=== PATIENT | female | born 1955 | race Caucasian/White ===

== ENCOUNTER 2019-05-21 09:31 | Inpatient (IN) ==
[2019-05-21] MEDS ORDERED: DUONEB (A & A) INH ONE (09:49)
--- NOTE | 2019-05-21 09:57 | PROVIDER DOCUMENTATION ---
HPI-Respiratory General - General Stated Complaint: SOB/ High Blood Sugar Time Seen by Provider: 05/21/19 09:46 Source: patient Allergies/Adverse Reactions: Patient Allergies Allergy/AdvReac Type Severity Reaction Status Date / Time carisoprodol [From Soma] Allergy Mild HIVES Verified 05/21/19 11:03 Penicillins Allergy RASH Verified 05/21/19 11:03 Home Medications: Home Medication List Medication Instructions Recorded Confirmed Last Taken Type Albuterol Sulfate Inhaler 2 puff INH [id number] PRN 02/20/15 05/21/19 05/21/19 07:00 History [Ventolin Hfa] Multivitamin [Multivitamins] 1 each PO DAILY 03/13/15 05/21/19 05/20/19 07:00 History Aspirin 81 mg PO DAILY #30 chewtab 10/24/15 05/21/19 05/20/19 07:00 Rx Amiodarone [Cordarone] 100 mg PO DAILY 01/19/16 05/21/19 05/20/19 07:00 History Cholecalciferol (Vit D3) [Vitamin 5,000 unit PO DAILY 01/19/16 05/21/19 05/20/19 07:00 History D] Vitamin B Complex 1 each PO DAILY 01/19/16 05/21/19 05/20/19 07:00 History Clopidogrel [Plavix] 75 mg PO DAILY 07/26/17 05/21/19 05/21/19 07:00 History Hydralazine [Apresoline] 75 mg PO BID 07/26/17 05/21/19 05/20/19 21:00 History Insulin Aspart [Novolog Flexpen] 100 unit SQ DIRECTED 07/26/17 05/21/19 05/20/19 19:00 History Insulin Glargine [Lantus] 30 unit SUBQ QAM #0 07/30/17 05/21/19 05/20/19 07:00 Rx ATORVAstatin [Lipitor] 10 mg PO QHS 05/21/19 05/21/19 05/20/19 21:00 History Amlodipine [Norvasc] 10 mg PO DAILY 05/21/19 05/21/19 05/20/19 07:00 History Citalopram [Celexa] 40 mg PO DAILY 05/21/19 05/21/19 05/20/19 07:00 History Famotidine 40 mg PO BID 05/21/19 05/21/19 05/20/19 17:00 History Gabapentin 200 mg PO QHS 05/21/19 05/21/19 05/20/19 21:00 History Gabapentin [Neurontin] 100 mg PO QAM 05/21/19 05/21/19 05/20/19 07:00 History Levothyroxine [Synthroid] 175 microgm PO DAILY 05/21/19 05/21/19 05/20/19 07:00 History - History of Present Illness-Resp Nature of Presenting Problem: 63yof present to ER via EMS with c/o SOB. Pt is a dialysis pt and is due for dialysis today. EMS reports O2 sat in 60s on arrival states they gave breathing tx en route. Pt on NRB during exam. Quality of Pain: reports: none Onset/Duration: reports: 2 days ago Timing: reports: still present, getting worse Cough Quality/Degree: reports: no cough Current Respiratory Medication Therapy: Initiated see nurses note Associated Symptoms: reports: chest pain/soreness, short of breath, wheezing. denies: dizziness, fever/chills, sweaty Review of Systems - Adult - REVIEW OF SYSTEMS - ADULT ROS:: limited per condition Constitutional: reports: no symptoms reported. denies: chills, fever Eyes: reports: no symptoms reported Ears, Nose, Mouth & Throat: reports: no symptoms reported. denies: throat pain Cardiovascular: reports: no symptoms reported. denies: chest pain Respiratory: reports: see HPI, dyspnea on exertion, shortness of breath, wheezing. denies: cough Gastrointestinal: reports: no symptoms reported. denies: nausea, vomiting Genitourinary: reports: see HPI, other (anuric) Musculoskeletal: reports: no symptoms reported Integumentary: reports: no symptoms reported Neurological: reports: no symptoms reported. denies: dizziness/vertigo Psychiatric: reports: no symptoms reported Endocrine: reports: no symptoms reported Hematologic/Lymphatic: reports: no symptoms reported Allergic/Immunologic: reports: no symptoms reported All Other Systems: Reviewed and Negative Past History - Adult - PAST MEDICAL HISTORY-ADULT Review of Records: reports: Old Records Reviewed, Nursing Assessment Review, Medications Reviewed, Social history reviewed & non-contributory. Major Childhood Illnesses: reports: denies history Cardiovascular: reports: CAD, CHF, HTN, hyperlipidemia Respiratory: reports: denies history Gastrointestinal: reports: GERD Obstetrical/Gynecological: reports: denies history Genitourinary: reports: dialysis, ESRD, kidney disease Musculoskeletal: reports: other (Restless Leg Syndrome) Neurological: reports: denies history Endocrine/Immune: reports: Diabetes, thyroid disorder Other Conditions: reports: denies history - PRIOR SURGERIES/PROCEDURES Surgical/Procedure History: reports: cardiac stent - IMMUNIZATION STATUS Childhood Immunizations: See Nurse Assessment Flu Vaccine: See Nurse Assessment - FAMILY HISTORY Family History: reviewed, not pertinent Physical Exam-General - PHYSICAL EXAM-ADULT Initial Vital Signs Reviewed: Yes - CONSTITUTIONAL General Appearance: alert, moderate distress - HEAD, EARS, NOSE, MOUTH & THROAT HENMT: moist mucous membranes. negative: angioedema - NECK Neck: full range of motion, supple, normal inspection. negative: lymphadenopathy, trachial deviation - RESPIRATORY Respiratory: chest non-tender, respiratory distress, accessory muscle use, rhonchi, wheezing, retractions, increased rate - CARDIOVASCULAR Cardiovascular: regular rate, rhythm, other (1+ edema to BLE) - GASTROINTESTINAL (ABDOMEN) Abdominal Exam: normal bowel sounds, non tender, soft - LYMPHATIC Lymphatic: no adenopathy - MUSCULOSKELETAL Back Exam: normal inspection Extremity: normal range of motion, normal capillary refill. negative: erythema, pulse deficit - SKIN Integumentary: normal color, warm/dry. negative: diaphoresis - NEUROLOGIC Neurologic: grossly normal - PSYCHIATRIC Psych/Mental Status: oriented x 3 Progress - PLAN OF CARE/RESULTS Progress/Plan/Lab Results: Vital Signs - 8 hr 05/21/19 09:30 05/21/19 10:20 Temperature 98.6 F Pulse Rate 100 H Respiratory Rate 24 Blood Pressure 122/83 O2 Sat by Pulse Oximetry 62 L 97 05/21/19 10:17 Influenza Screen - Final Nasopharyngeal Laboratory Results - last 24 hr 05/21/19 05/21/19 05/21/19 09:35 09:49 10:07 WBC 10.90 H RBC 3.49 L Hgb 10.7 L Hct 35.3 L MCV 101.1 H MCH 30.7 MCHC 30.3 L RDW Std Deviation 16.7 H Plt Count 217 MPV 10.6 H Immature Gran % (Auto) 0.3 Neut % (Auto) 82.0 H Lymph % (Auto) 12.0 L Page % (Auto) 4.8 Eos % (Auto) 0.3 Baso % (Auto) 0.6 Immature Gran # (Auto) 0.03 Neut # (Auto) 8.95 H Lymph # (Auto) 1.31 Page # (Auto) 0.52 Eos # (Auto) 0.03 Baso # (Auto) 0.06 PT INR PTT (Actin FS) Specimen Type ARTERIAL Sample Site L RADIAL pH 7.17 L* pCO2 57 H* pO2 96 HCO3 18.5 L Base Excess -8.0 L Oxyhemoglobin 88.2 L* ABG O2 Sat (Calculated) 14.2 L ABG O2 Saturation 98.0 ABG Carboxyhemoglobin 9.00 H* ABG Methemoglobin 1.0 Mateo Test YES A-a O2 Difference 403.0 Total Hemoglobin 11.3 L Lactate 1.00 Blood Gas Modality NRB FiO2 % 80.0 Sodium Potassium Chloride Carbon Dioxide Anion Gap BUN Creatinine Estimated GFR/1.73 m2 BUN/Creatinine Ratio Glucose POC Glucose 500 H D Estimat Average Glucose Hemoglobin A1c Calculated Osmolality Calcium Phosphorus Magnesium Total Bilirubin AST ALT Alkaline Phosphatase Creatine Kinase Troponin T Total Protein Albumin Globulin Albumin/Globulin Ratio Triglycerides Cholesterol LDL Cholesterol Direct VLDL Cholesterol, Calc HDL Cholesterol Coronary Risk Interp Amylase Lipase Plasma Lactate Acetone Level 05/21/19 05/21/19 05/21/19 10:07 10:07 10:07 WBC RBC Hgb Hct MCV MCH MCHC RDW Std Deviation Plt Count MPV Immature Gran % (Auto) Neut % (Auto) Lymph % (Auto) Page % (Auto) Eos % (Auto) Baso % (Auto) Immature Gran # (Auto) Neut # (Auto) Lymph # (Auto) Page # (Auto) Eos # (Auto) Baso # (Auto) PT 13.8 INR 1.04 PTT (Actin FS) 32.6 Specimen Type Sample Site pH pCO2 pO2 HCO3 Base Excess Oxyhemoglobin ABG O2 Sat (Calculated) ABG O2 Saturation ABG Carboxyhemoglobin ABG Methemoglobin Mateo Test A-a O2 Difference Total Hemoglobin Lactate Blood Gas Modality FiO2 % Sodium 128 L Potassium 6.5 H* Chloride 89 L Carbon Dioxide 21 L Anion Gap 18 BUN 49 H Creatinine 7.4 H Estimated GFR/1.73 m2 6 BUN/Creatinine Ratio 7 Glucose 857 H* POC Glucose Estimat Average Glucose Hemoglobin A1c Calculated Osmolality 313 Calcium 8.9 Phosphorus Magnesium 2.4 Total Bilirubin 0.43 AST 26 ALT 14 Alkaline Phosphatase 245 H Creatine Kinase 117 Troponin T Total Protein 7.8 Albumin 4.3 Globulin 3.5 Albumin/Globulin Ratio 1.2 Triglycerides Cholesterol LDL Cholesterol Direct VLDL Cholesterol, Calc HDL Cholesterol Coronary Risk Interp Amylase Lipase Plasma Lactate 1.1 Acetone Level NEGATIVE 05/21/19 05/21/19 05/21/19 10:07 10:07 10:07 WBC RBC Hgb Hct MCV MCH MCHC RDW Std Deviation Plt Count MPV Immature Gran % (Auto) Neut % (Auto) Lymph % (Auto) Page % (Auto) Eos % (Auto) Baso % (Auto) Immature Gran # (Auto) Neut # (Auto) Lymph # (Auto) Page # (Auto) Eos # (Auto) Baso # (Auto) PT INR PTT (Actin FS) Specimen Type Sample Site pH pCO2 pO2 HCO3 Base Excess Oxyhemoglobin ABG O2 Sat (Calculated) ABG O2 Saturation ABG Carboxyhemoglobin ABG Methemoglobin Mateo Test A-a O2 Difference Total Hemoglobin Lactate Blood Gas Modality FiO2 % Sodium Potassium Chloride Carbon Dioxide Anion Gap BUN Creatinine Estimated GFR/1.73 m2 BUN/Creatinine Ratio Glucose POC Glucose Estimat Average Glucose 192 Hemoglobin A1c 8.3 H Calculated Osmolality Calcium Phosphorus 9.8 H Magnesium Total Bilirubin AST ALT Alkaline Phosphatase Creatine Kinase Troponin T 0.146 H Total Protein Albumin Globulin Albumin/Globulin Ratio Triglycerides Cholesterol LDL Cholesterol Direct VLDL Cholesterol, Calc HDL Cholesterol Coronary Risk Interp Amylase 46 Lipase 77 H Plasma Lactate Acetone Level 05/21/19 10:07 WBC RBC Hgb Hct MCV MCH MCHC RDW Std Deviation Plt Count MPV Immature Gran % (Auto) Neut % (Auto) Lymph % (Auto) Page % (Auto) Eos % (Auto) Baso % (Auto) Immature Gran # (Auto) Neut # (Auto) Lymph # (Auto) Page # (Auto) Eos # (Auto) Baso # (Auto) PT INR PTT (Actin FS) Specimen Type Sample Site pH pCO2 pO2 HCO3 Base Excess Oxyhemoglobin ABG O2 Sat (Calculated) ABG O2 Saturation ABG Carboxyhemoglobin ABG Methemoglobin Mateo Test A-a O2 Difference Total Hemoglobin Lactate Blood Gas Modality FiO2 % Sodium Potassium Chloride Carbon Dioxide Anion Gap BUN Creatinine Estimated GFR/1.73 m2 BUN/Creatinine Ratio Glucose POC Glucose Estimat Average Glucose Hemoglobin A1c Calculated Osmolality Calcium Phosphorus Magnesium Total Bilirubin AST ALT Alkaline Phosphatase Creatine Kinase Troponin T Total Protein Albumin Globulin Albumin/Globulin Ratio Triglycerides 110 Cholesterol 153 LDL Cholesterol Direct 69 VLDL Cholesterol, Calc 22 HDL Cholesterol 76 H Coronary Risk Interp 2.00 Amylase Lipase Plasma Lactate Acetone Level Orders Category Date Time Status [facility] Routine [id number] 05/21/19 12:11 Active Cardiac Monitoring DIRECTED Care 05/21/19 09:48 Active Daily Weights 0500 Care 05/21/19 12:16 Active Dialysate Bath: DIRECTED Care 05/21/19 10:36 Completed Dialysate Flow: DIRECTED Care 05/21/19 10:36 Completed Dialysis Blood Flow: DIRECTED Care 05/21/19 10:36 Completed Dialysis Machine Settings: DIRECTED Care 05/21/19 10:36 Completed Dialysis Treatment Time: DIRECTED Care 05/21/19 10:36 Completed Dialysis Treatment Weight ROUTINE Care 05/21/19 10:36 Completed Dialysis UF Removal Amount: DIRECTED Care 05/21/19 10:36 Completed Dialyzer Type: DIRECTED Care 05/21/19 10:36 Completed FSBS/Accucheck Result Q1H Care 05/21/19 12:16 Active IV Insertion ORDERED Care 05/21/19 09:48 Completed If symptomatic Hypoglycemia As Ordered Care 05/21/19 12:16 Active Intake and Output-Strict ORDERED Care 05/21/19 12:16 Active NRSG - Obtain Dialysis Consent NOW Care 05/21/19 10:36 Completed Notify physician if: ORDERED Care 05/21/19 12:16 Active Nursing- MD Consult Request ROUTINE Care 05/21/19 12:11 Active Vital Signs Order Q1H Care 05/21/19 12:11 Active Physician/Provider Consults Routine Cons 05/21/19 12:11 Ordered Physician/Provider Consults Routine Cons 05/21/19 12:11 Ordered NPO Except MEDICATIONS Diet 05/21/19 12:19 Active Renal Diet Diet 05/21/19 12:13 Completed CHEST-1 VIEW [RAD] Stat Exams 05/21/19 09:48 Completed A1C HGB W EST AVG GLUCOSE [CHEM] Stat Lab 05/21/19 10:07 Completed ABG [RESP] Q4H Lab 05/21/19 12:16 Ordered ABG [RESP] Q4H Lab 05/21/19 16:16 Ordered ABG [RESP] Q4H Lab 05/21/19 20:16 Ordered ABG [RESP] Q4H Lab 05/22/19 00:16 Ordered ABG [RESP] Q4H Lab 05/22/19 04:16 Ordered ABG [RESP] Q4H Lab 05/22/19 08:16 Ordered ABG [RESP] Routine Lab 05/21/19 09:49 Completed ACETONE SERUM [CHEM] Stat Lab 05/21/19 10:07 Completed AMYLASE [CHEM] Stat Lab 05/21/19 10:07 Completed BASIC METABOLIC PANEL [CHEM] Q4H Lab 05/21/19 12:30 Uncollected BASIC METABOLIC PANEL [CHEM] Q4H Lab 05/21/19 16:30 Uncollected BASIC METABOLIC PANEL [CHEM] Q4H Lab 05/21/19 20:30 Uncollected BLOOD CULTURE [BLDCUL] Stat Lab 05/21/19 10:45 Results CBC WITH DIFF [HEME] Stat Lab 05/21/19 10:07 Completed CK PROFILE [SP CHEM] Stat Lab 05/21/19 10:07 Completed COMPREHENSIVE METABOLIC PANEL [CHEM] Stat Lab 05/21/19 10:07 Completed Flu Swab [INFLUENZA SCREEN A/B] Stat Lab 05/21/19 10:17 Completed LACTATE, PLASMA [CHEM] Lab 05/21/19 10:07 Completed LACTATE, PLASMA [CHEM] Lab 05/21/19 13:00 Uncollected LACTATE, PLASMA [CHEM] Lab 05/21/19 16:00 Uncollected LIPASE [CHEM] Stat Lab 05/21/19 10:07 Completed LIPID PROFILE W/DIR LDL [LIPIDS] Stat Lab 05/21/19 10:07 Completed MAGNESIUM [CHEM] Q4 Lab 05/21/19 12:30 Uncollected MAGNESIUM [CHEM] Q4 Lab 05/21/19 16:30 Uncollected MAGNESIUM [CHEM] Q4 Lab 05/21/19 20:30 Uncollected MAGNESIUM [CHEM] Stat Lab 05/21/19 10:07 Completed PHOSPHORUS [CHEM] Q4 Lab 05/21/19 12:30 Uncollected PHOSPHORUS [CHEM] Q4 Lab 05/21/19 16:30 Uncollected PHOSPHORUS [CHEM] Q4 Lab 05/21/19 20:30 Uncollected PHOSPHORUS [CHEM] Stat Lab 05/21/19 10:07 Completed PROTIME WITH INR [COAG] Stat Lab 05/21/19 10:07 Completed PTT [COAG] Stat Lab 05/21/19 10:07 Completed TROPONIN T Stat Lab 05/21/19 10:07 Completed URINALYSIS W/POSS RFLX CULT [URINALYSIS] Stat Lab 05/21/19 12:18 Uncollected URINE DRUG SCREEN Stat Lab 05/21/19 12:17 Uncollected 0.9% Sodium Chloride Inj [Ns] 1,000 ml Med 05/21/19 10:00 Discontinued IV 999 mls/hr 0.9% Sodium Chloride Inj [Ns] 100 ml Med 05/21/19 12:30 Active Insulin Human Regular [Humulin R] 100 unit IV Per Protocol mls/hr 0.9% Sodium Chloride Inj [Ns] 2,000 ml Med 05/21/19 10:36 Discontinued MISC As Directed mls/hr ATORVAstatin [Lipitor] Med 05/21/19 21:00 Active 10 mg PO QHS Acetaminophen [Tylenol] Med 05/21/19 12:11 Active 650 mg PO Q6H PRN PRN Albuterol 2.5MG/Ipratrop 0.5MG [Duoneb (A & A)] Med 05/21/19 15:30 Active 3 ml INH RTQ4H Albuterol 2.5MG/Ipratrop 0.5MG [Duoneb (A & A)] Med 05/21/19 09:49 Discontinued 9 ml INH NOW ONE Amiodarone [Cordarone] Med 05/21/19 12:15 Active 100 mg PO DAILY Amlodipine [Norvasc] Med 05/21/19 12:15 Active 10 mg PO DAILY Aspirin Med 05/21/19 12:15 Active 81 mg PO DAILY Budesonide [Pulmicort] Med 05/21/19 19:30 Active 0.5 mg INH RTBID CAPTOpril [Capoten] Med 05/21/19 10:03 Discontinued 25 mg PO NOW ONE CAPTOpril [Capoten] Med 05/21/19 13:00 Discontinued 6.25 mg PO Q8HR CefTRIAXONE [Rocephin] 1 gm Med 05/21/19 10:15 Discontinued 0.9% Sodium Chloride Inj [Ns] 50 ml IV NOW Cholecalciferol (Vit D3) [Vitamin D] Med 05/22/19 09:00 Active 5,000 unit PO DAILY Citalopram [Celexa] Med 05/22/19 09:00 Active 40 mg PO DAILY Clopidogrel [Plavix] Med 05/22/19 09:00 Active 75 mg PO DAILY Dextrose 50% Syringe [D50w Syringe] Med 05/21/19 12:16 Active See Protocol IV DIRECTED PRN PRN Famotidine [Pepcid] Med 05/21/19 21:00 Active 40 mg PO BID Furosemide [Lasix] Med 05/21/19 10:00 Discontinued 80 mg IV NOW ONE Gabapentin [Neurontin] Med 05/22/19 09:00 Active 100 mg PO QAM Gabapentin [Neurontin] Med 05/21/19 21:00 Active 200 mg PO QHS Heparin Med 05/21/19 10:36 Discontinued 1,000 unit IV BOLUS PRN Heparin Med 05/21/19 12:15 Active 5,000 unit SUBQ Q12H Hydralazine [Apresoline] Med 05/21/19 21:00 Active 75 mg PO BID Insulin Glargine [Lantus] Med 05/22/19 09:00 Discontinued 30 unit SUBQ QAM Insulin Human Regular [Humulin R] Med 05/21/19 12:16 Discontinued 7.8 unit IV ONCE ONE Insulin Human Regular [Humulin R] Med 05/21/19 16:00 Discontinued See Protocol SUBQ 0700,1100,1600,2100 Levothyroxine [Synthroid] Med 05/22/19 09:00 Active 175 microgm PO DAILY Mag Sulf/Vitamin B Comp W-C/Zn [Vicon-C] Med 05/22/19 09:00 Active 1 each PO DAILY Morphine Med 05/21/19 10:03 Discontinued 4 mg IV NOW ONE Multivit,Fe,Ca,FA & Min [Thera M Plus] Med 05/22/19 09:00 Active 1 each PO DAILY Nitroglycerin Med 05/21/19 10:00 Discontinued 1 inch TOP NOW ONE Ondansetron [Zofran] Med 05/21/19 10:03 Discontinued 4 mg IV NOW ONE Ondansetron [Zofran] Med 05/21/19 12:11 Active 4 mg IV Q4H PRN PRN Aerosol Treatments Routine Oth 05/21/19 09:49 Active Aerosol Treatments Routine Oth 05/21/19 12:11 Active Aerosol Treatments Stat Oth 05/21/19 09:49 Active BIPAP Stat Oth 05/21/19 10:04 Active Oxygen Device Stat Oth 05/21/19 09:48 Active EKG [EKG] Stat Ther 05/21/19 09:50 Draft Transfer/Admit Order [TRANSFER] Routine Transfer 05/21/19 12:03 Ordered Result Diagrams: 05/21/19 10:07 05/21/19 10:07 - REASSESSMENT Reassessment #1 Time Reassessed: 10:03 (discussed pt with Dr Gilbert. Dr Gilbert assessed pt suggests adding captropril 25mg SL, morphine, nitro, and lasix.) Reassessment #2 Time Reassessed: 10:45 (pt improving with bipap, will be doing to dialysis.) Status: improving - EKG 1 Time of EKG reading by physician:: 09:46 EKG Read and Signed by:: Clemente Gilbert EKG Interpretation (*Must complete 3 of following elements*): Abnormal Rate: 89 Rhythm: NSR, 1st degree AV block, prolonged QT - XRAY 1 XRAY Study: Chest Impression: See EMR Report (FINDINGS: There is significant cardiomegaly. There are severe diffuse bilateral mixed infiltrates that are predominantly interstitial. There are probably trace pleural effusions. IMPRESSION: Cardiomegaly, pulmonary edema, trace pleural effusions. Electronically signed by Doni Rodriguez 05/21/2019 10:10 AM) - CONSULTS/PCP/HOSPITALIST Notification #1 *Consult/PCP/Hospitalist*: Dr Gilbert spoke with Dr Ashby - states he is going to dialysis her first Time Discussed: 10:11 (admit to hospitalist) Consult Disposition: Admit #2 Consult: Emerald RAHMAN hospitalist Time Discussed: 12:04 Consult Disposition: Admit Departure - Departure Date of Disposition Decision: 05/21/19 Time of Disposition Decision: 10:15 DIAGNOSIS: ESRD (end stage renal disease), Hyperkalemia, Hyperglycemia Respiratory failure Qualifiers: Chronicity: acute Respiratory failure complication: hypoxia and hypercapnia Qualified Code(s): J96.01 - Acute respiratory failure with hypoxia Pulmonary edema Qualifiers: Chronicity: acute Qualified Code(s): J81.0 - Acute pulmonary edema Disposition: ADMITTED INPATIENT 09 Certified Medical Emergency: Emergent Condition: Fair - Critical Care Note This patient required my direct & personal management of CC.: Yes Total Time (mins): 45 Critical Care Statement: This patient required my direct personal management to treat or rule out processes, the absence of which, could potentiallly result in sudden, clinically significant life or limb threatening deterioration. Attestation - Physician/ AXEL Attestation Patient care was provided by Advanced Practice Provider:: Yes Advanced Practice Provider:: Brittany Montilla Advanced Practice Provider documentation review:: The Mid-level provider documentation, treatment plan and medical decision making was reviewed by the physician who agrees with all treatment and medical decision making by the MLP. The physician spent face to face time with patient:: Yes Advanced Practice Provider documentation review:: Supervising physician onsite and consulted in the evaluation and care of this patient. The physician did have a face to face encounter with the patient.
[2019-05-21] MEDS ORDERED: NITROGLYCERIN TOP ONE (10:00)
[2019-05-21] MEDS ORDERED: NS 1,000 ML IV ONE (10:00)
[2019-05-21] MEDS ORDERED: LASIX IV ONE (10:00)
[2019-05-21 10:03] LABS: ALLEN TEST YES; BLOOD TYPE ARTERIAL; HCO3-(ACT) 18.5 mmoll (20.0-26.0); O2(CT) 14.2 mL/dL (15.0-23.0); PO2(98.6) 96 mmHg (60-100); SAMPLE BLOOD; THB 11.3 g/dL (11.5-17.4)
[2019-05-21] MEDS ORDERED: CAPOTEN PO ONE (10:03)
[2019-05-21] MEDS ORDERED: MORPHINE IV ONE (10:03)
[2019-05-21] MEDS ORDERED: ZOFRAN IV ONE (10:03)
[2019-05-21 10:05] LABS: PCO2(98.6) 57 mmHg (35-45); pH(98.6) 7.17 (7.35-7.45)
[2019-05-21 10:06] LABS: O2HB 88.2 % (95.0-99.0)
[2019-05-21 10:07] LABS: MODALITY NRB
--- NOTE | 2019-05-21 10:13 | Diag Imaging Result Doc PS360 ---
CHEST-1 VIEW - 05/21/2019 INDICATION: sob COMPARISON: 05/02/2018 FINDINGS: There is significant cardiomegaly. There are severe diffuse bilateral mixed infiltrates that are predominantly interstitial. There are probably trace pleural effusions. IMPRESSION: Cardiomegaly, pulmonary edema, trace pleural effusions. Electronically signed by Doni Rodriguez 05/21/2019 10:10 AM
[2019-05-21] MEDS ORDERED: ROCEPHIN 1 GM in NS 50 ML IV ONE (10:15)
--- NOTE | 2019-05-21 10:25 | EKG Report ---
Test Performed on : 05/21/2019 09:46:01 AM Test Reason : sob Blood Pressure : / mmHG Vent. Rate : 089 BPM Atrial Rate : 416 BPM P-R Int : 000 ms QRS Dur : 112 ms QT Int : 426 ms P-R-T Axes : 000 -42 069 degrees QTc Int : 518 ms Atrial flutter. Left axis deviation Anterior infarct (cited on or before 26-JUL-2017) Prolonged QT Abnormal ECG When compared with ECG of 26-JUL-2017 20:59, Previous ECG has undetermined rhythm, needs review ST no longer depressed in Anterior leads T wave inversion no longer evident in Lateral leads QT has lengthened Unconfirmed Result
[2019-05-21 10:32] LABS: BASO# 0.06 X1000 (0.0-0.2); BASO% 0.6 % (0.0-0.8); EOS# 0.03 X1000 (0.0-0.7); EOS% 0.3 % (0.0-10.0); HEMATOCRIT 35.3 % (37.0-47.0); HEMOGLOBIN 10.7 g/dL (12.0-16.0); IMM GRAN# 0.03 X1000 (0.0-0.04); IMM GRAN% 0.3 % (0.0-0.5); LYMPH# 1.31 X1000 (1.2-3.4); MCH 30.7 PG (27-31); MCHC 30.3 g/dL (33-37); MCV 101.1 FL (81-99); MONO# 0.52 X1000 (0.11-0.59); MONO% 4.8 % (1.7-9.3); MPV 10.6 FL (7.4-10.4); NEUT# 8.95 X1000 (1.4-6.5); PLT 217 X1000 (130-400); RBC 3.49 XMIL (4.2-5.4); RDW 16.7 % (11.5-14.5)
[2019-05-21] MEDS ORDERED: NS 2,000 ML MISC PRN (10:36)
[2019-05-21 10:53] LABS: INR 1.04; PROTIME 13.8 Seconds (11.0-16.0)
[2019-05-21 10:54] LABS: PTT 32.6 Seconds (22.3-41.8)
[2019-05-21] MEDS: HEPARIN IV PRN (11:45)
[2019-05-21 11:52] LABS: AGAP 18; ALB/GLOB RATIO 1.2; ALBUMIN 4.3 g/dL (3.5-5.0); ALKALINE PHOSPHATASE 245 U/L (32-104); BUN 49 mg/dL (8-22); CALCIUM 8.9 mg/dL (8.8-10.2); CHLORIDE 89 mmol/L (98-107); CK PROFILE 117 U/L (24-173); COSMO 313; CREATININE 7.4 mg/dL (0.5-0.9); ESTIMATED GFR 6; GOT 26 U/L (10-30); GPT 14 U/L (10-36); MAGNESIUM 2.4 mg/dL (1.5-2.7); SODIUM 128 mmol/L (136-145); TCO2 21 mmol/L (25-35); TOTAL BILIRUBIN 0.43 mg/dL (0.20-1.00); TOTAL PROTEIN 7.8 g/dL (6.3-8.3)
[2019-05-21 11:55] LABS: GLUCOSE 857 mg/dL (70-104); POTASSIUM 6.5 mmol/L (3.5-5.1)
[2019-05-21 11:56] LABS: ACETONE SERUM NEGATIVE (NEGATIVE)
[2019-05-21] MEDS ORDERED: TYLENOL PO PRN (12:11)
[2019-05-21] MEDS ORDERED: HUMULIN R IV ONE (12:16)
[2019-05-21] MEDS ORDERED: D50W SYRINGE IV PRN (12:16)
[2019-05-21] MEDS ORDERED: HUMULIN R 100 UNIT in NS 100 ML IV SCH (12:30)
[2019-05-21 12:41] LABS: PHOSPHORUS 9.8 mg/dL (2.7-4.5)
[2019-05-21 12:44] LABS: HEMOGLOBIN A1C 8.3 % (4.8-6.0)
[2019-05-21] MEDS ORDERED: CAPOTEN PO SCH (13:00)
[2019-05-21 15:51] LABS: ALLEN TEST YES; BE 2.5 mmoll (-3.0-3.0); BLOOD TYPE ARTERIAL; HCO3-(ACT) 26.7 mmoll (20.0-26.0); METHB 1.2 % (0.0-1.5); O2(CT) 16.7 mL/dL (15.0-23.0); PCO2(98.6) 48 mmHg (35-45); PO2(98.6) 67 mmHg (60-100); SAMPLE BLOOD; SAO2 94.8 % (95.0-100.0); THB 13.2 g/dL (11.5-17.4); pH(98.6) 7.38 (7.35-7.45)
[2019-05-21 15:52] LABS: MODALITY BI PAP; O2HB 89.8 % (95.0-99.0)
[2019-05-21] MEDS ORDERED: HUMULIN R SUBQ SCH (16:00)
[2019-05-21] MEDS ORDERED: AZACTAM 1 GM in NS 50 ML IV ONE (16:15)
[2019-05-21] MEDS: ASPIRIN PO SCH (16:17)
[2019-05-21] MEDS: HEPARIN SUBQ SCH (16:18)
[2019-05-21] MEDS: CORDARONE PO SCH ×2 (16:18→18:34)
[2019-05-21] MEDS: NORVASC PO SCH ×2 (16:18→18:34)
[2019-05-21] MEDS: ZYVOX 600 MG/D5W 600 MG/300 ML IVPB IV SCH (16:29)
[2019-05-21] MEDS: DUONEB (A & A) INH SCH ×3 (16:47→23:38)
[2019-05-21] MEDS: PULMICORT INH SCH (19:35)
--- NOTE | 2019-05-21 20:02 | HISTORY AND PHYSICAL ---
PRIMARY CARE PROVIDER: Edinson Maxwell MD CHIEF COMPLAINT: Shortness of breath. HISTORY OF PRESENT ILLNESS: Ms. Myers is a 63-year-old female with a medical history of end-stage renal disease and receives dialysis on Tuesday, Tuesday, Tuesday. Was due for dialysis today. Apparently, she started having excessive shortness of breath last night, requested her brother bring her to the emergency department where she was found to have acute respiratory failure requiring BiPAP. She was also significantly hyperglycemic in the 800s, which she claims that she was in the 40s yesterday so she missed some of her insulin. Currently she went for emergent hemodialysis for fluid volume overload secondary to fluid volume. We will consult Pulmonary for respiratory failure, Dr. Ashby for fluid volume overload and end-stage renal disease. She will be monitored in the ICU, started on an insulin drip for significant hyperglycemia. PAST MEDICAL HISTORY: 1. CAD with history of PTCA and stents x3. 2. Diabetes mellitus, type 2, uncontrolled. 3. Diabetic neuropathy. 4. End-stage renal disease with hemodialysis Tuesday, Tuesday, Tuesday, followed by Dr. Ashby. 5. GERD. 6. Systemic hypertension. 7. Hyperlipidemia. 8. Hypothyroidism. 9. Restless legs syndrome. 10. Anemia, chronic. 11. Protein-calorie malnutrition with hypoalbuminemia. 12. Depression. 13. Obstructive sleep apnea. 14. Tobacco abuse. 15. Recurrent falls. 16. Cervical lumbar spinal stenosis. 17. History of decubitus ulcers on her toes. 18. Morbid obesity. 19. Chronic lower extremity edema. 20. Congestive heart failure. SURGICAL HISTORY: 1. AV grafting. 2. PTCA with 3 stents. SOCIAL HISTORY: A 1- to 7-pgla-asc-day cigarettes for at least 50 years. She is on disability. Lives with her brother. Uses a walker for ambulation. Denies alcohol or illicit drug use. FAMILY HISTORY: Positive for diabetes, hypertension, heart disease. ALLERGIES: Carisoprodol and penicillin. HOME MEDICATIONS: 1. Gabapentin 200 mg p.o. nightly. 2. Atorvastatin 10 mg p.o. nightly. 3. Apresoline 75 mg p.o. twice daily. 4. Celexa 40 mg p.o. daily. 5. Amiodarone 200 mg p.o. daily. 6. Pepcid 40 mg p.o. twice daily. 7. Multivitamin 1 tablet p.o. daily. 8. Neurontin 100 mg p.o. daily. 9. Norvasc 10 mg p.o. daily. 10. Insulin sliding scale. 11. Plavix 75 mg p.o. daily. 12. Synthroid 175 mcg p.o. daily. 13. Albuterol 4 times a day p.r.n. 14. Vitamin B complex 1 tablet p.o. daily. 15. Vitamin D 5000 units p.o. daily. 16. Aspirin 81 mg p.o. daily. 17. Lantus 30 units subcutaneous daily. REVIEW OF SYSTEMS: A 14 point review of systems is complete, and all are negative except for those mentioned in above HPI. She denies having any productive cough. Denies fever or chest pain. Denies any urinary tract symptoms. PHYSICAL EXAMINATION: VITAL SIGNS: Temperature 98.6 degrees, heart rate 100, respiratory rate 24, blood pressure 122/83, O2 saturation 62% on room air and 97% on BiPAP. 5 feet 3 inches tall, 172 pounds, BMI is 30.5. GENERAL: Ms. Jolene Myers is a 63-year-old female. She is in no acute distress. She is able answer questions appropriately with the BiPAP on. HEENT: Atraumatic, normocephalic. Pupils are equal and reactive. Extraocular movements intact. Mucous membranes are dry. NECK: Trachea midline. CARDIOVASCULAR: S1, S2. Tachycardic rate and rhythm. No rubs, gallops, or murmurs. She has got 4+ lower extremity edema. 2+ dorsalis and radial pulses. Positive for JVD. Negative for carotid bruits. PULMONARY: Clear to auscultation. Bilateral breath sounds decreased in the bases. No accessory muscle use. Mild work of breathing. Tolerating BiPAP. GASTROINTESTINAL: Soft, round, nondistended. Positive bowel sounds x4. EXTREMITIES: Decreased range of motion. Moves all extremities equally, about a 4/5 strength. NEUROLOGIC: Oriented x3. Follows commands. Decreased sensory in the lower extremities. SKIN: Warm, dry, intact. LABORATORY DATA: White blood cells 10,000, hemoglobin 10, hematocrit 35, platelet count 217,000. INR 1.04, PTT is 32.6. ABGs on a non-rebreather: PH 7.17, pCO2 of 57, PO2 of 96, bicarbonate 18, base excess -8, O2 saturation 88%, carboxyhemoglobin 9, lactate 1. Sodium 128, potassium 6.5, BUN 49, creatinine 7.4,, glucose 857. Hemoglobin A1c is 8.3 which is higher than it has been, she normally ranges between 6.3 and 6.4. Phosphorus 9.8, magnesium is 2.4. Bilirubin 0.43, AST 26, ALT 14. CK 117, troponin. 0.146. Albumin 4.3. Triglycerides 110, total cholesterol 153. Amylase 44, lipase 77. Serum lactate 1.1. Acetone negative. IMAGING: Chest x-ray: Cardiomegaly, pulmonary edema, trace pleural effusions. DIAGNOSTIC STUDIES: EKG is stating atrial flutter, but this looks like a sinus rhythm. It does not look like a 2:1 flutter at all. Rate is 89. QTc is elevated at 518. ASSESSMENT AND PLAN: 1. Fluid volume overload with acute hypoxemic respiratory failure, requiring BiPAP and emergent hemodialysis. 2. End-stage renal disease, scheduled for Tuesday, Tuesday, Tuesday. She is emergently going for dialysis today with elevated potassium levels, BUN and creatinine, and fluid volume overload. Dr. Ashby has beenM consulted. Dr. Lin with Pulmonary consulted. 3. Metabolic acidosis. Likely from elevated blood glucose levels and kidney failure. We will recheck ABGs every 4 hours while she is on the insulin drip. 4. Uncontrolled diabetes mellitus type 2, nonketotic. Blood glucose level is 857 on presentation. She will be started on an insulin drip. According to her, her blood glucose levels were in the 40s yesterday, but we will go ahead and put her on the DKA protocol, insulin drip. Will just not do electrolyte replacement or volume replacement secondary to her fluid volume overload. 5. Depression. Continue Celexa. 6. History of coronary artery disease with stents. Denies any chest pain. 7. Decompensated systolic congestive heart failure. This is acute on chronic and dialysis is the treatment for her fluid volume overload at this time. 8. Hypothyroidism. Continue Synthroid. 9. Gastroesophageal reflux disease. Continue Pepcid. 10. Diabetic neuropathy. Continue Neurontin. 11. Hypertension. Continue Norvasc and Apresoline. 12. EKG reports atrial flutter. It looks like sinus rhythm, but she is on amiodarone so we will continue that. 13. Deep venous thrombosis prophylaxis. Heparin subcutaneous every 12 hours. 14. Tobacco abuse. Cessation discussed. Dictated by LACEY Khan for Terri Donovan MD cc: LACEY Khan MD I performed a face to face encounter on the patient. I reviewed all labs and imaging on the patient. I agree with the H&P as dictated. is a 63 year old female with a history of ESRD on hemodialysis, hypertension and DM type 2 who presented to the ER with Acute respiratory failure, volume overload and hyperkalemia. On exam, the patient was in moderate respiratory distress. Her breath sounds were coarse. The patient was immediately placed on BIPAP and was consulted. The patient was then taken for emergent dialysis. The patient will be admitted and transferred to the ICU after her dialysis treatment is complete. DIGNA
[2019-05-21 20:06] LABS: ALLEN TEST YES; BE 1.9 mmoll (-3.0-3.0); BLOOD TYPE ARTERIAL; HCO3-(ACT) 26.3 mmoll (20.0-26.0); METHB 0.9 % (0.0-1.5); O2(CT) 12.9 mL/dL (15.0-23.0); O2HB 90.3 % (95.0-99.0); PCO2(98.6) 48 mmHg (35-45); PO2(98.6) 62 mmHg (60-100); SAMPLE BLOOD; SAO2 94.2 % (95.0-100.0); THB 10.1 g/dL (11.5-17.4); pH(98.6) 7.37 (7.35-7.45)
[2019-05-21 20:08] LABS: MODALITY BI PAP
[2019-05-21] MEDS: SOLU-MEDROL IV SCH (20:16)
[2019-05-21] MEDS: LIPITOR PO SCH (20:17)
[2019-05-21] MEDS: APRESOLINE PO SCH (20:17)
[2019-05-21] MEDS: NEURONTIN PO SCH (20:17)
[2019-05-21] MEDS ORDERED: PEPCID PO SCH (21:00)
--- NOTE | 2019-05-21 21:33 | NEPHROLOGY CONSULTATION ---
DATE: 05/21/2019 REASON FOR CONSULTATION: Assistance with management. CONSULTING PHYSICIAN: Dr. Clemente Gilbert in the emergency room who contacted me directly. HISTORY OF PRESENT ILLNESS: Ms. Myers is a 63-year-old white female who is known to us from the outpatient dialysis arena. She has CKD 5D as well as diabetes, hypertension, peripheral neuropathy, hypothyroidism etc. She has been losing weight. Not eating well. She states that she had worsening shortness of breath overnight that aroused her from sleep. Some cough and green sputum. No pain with her cough and no chest pain generally. No chills or fevers. Because of these worsening symptoms, she had herself transported to the emergency room. O2 saturation was in the 60s on arrival following a breathing treatment and being treated with nonrebreather mask. She was transitioned to BiPAP and we were called for emergency dialysis management. No chills or fevers, sweats or night sweats. PAST MEDICAL HISTORY: As above. HOME MEDICATIONS: Include albuterol, multivitamin, aspirin, amiodarone, vitamin D, B complex, clopidogrel, hydralazine, insulin, atorvastatin, amlodipine, citalopram, famotidine, gabapentin, levothyroxine. SOCIAL, FAMILY AND REVIEW OF SYSTEMS: Otherwise noncontributory. PHYSICAL EXAMINATION: Vital Signs: Blood pressure 122/83, heart rate 100, respirations 24, afebrile. General: She is a chronically ill, elderly woman in no distress but using BiPAP. Skin is pale and dry with few ecchymoses. Conjunctivae are pink. Pupils are equal. Oropharynx is clear. Tongue is glistening. Neck: Supple. Neck veins are 6 cm. Heart: PMI nondisplaced. Regular rate and rhythm without gallops or murmurs. Lungs: Have equal breath sounds, shallow. No crackles. Abdomen: Obese, soft, nontender. Bowel sounds present. Extremities: 1+ edema. No clubbing or cyanosis. IMPRESSION: Respiratory failure. We will challenge her dry weight today with dialysis. She also is hyperkalemic and we will address this with dialysis as well. Marked hyperglycemia that will be managed by the primary team. Reassess for dialysis needs in the morning. cc: Sonny Ashby MD
[2019-05-21 23:31] LABS: CALCIUM 9.3 mg/dL (8.8-10.2); MAGNESIUM 1.8 mg/dL (1.5-2.7); PHOSPHORUS 5.4 mg/dL (2.7-4.5); POTASSIUM 3.8 mmol/L (3.5-5.1)
[2019-05-22] MEDS: HEPARIN SUBQ SCH ×2 (01:00→12:42)
[2019-05-22 01:39] LABS: CREATININE 4.2 mg/dL (0.5-0.9); POTASSIUM 4.4 mmol/L (3.5-5.1)
[2019-05-22 01:52] LABS: MAGNESIUM 1.9 mg/dL (1.5-2.7); PHOSPHORUS 5.4 mg/dL (2.7-4.5)
[2019-05-22] MEDS: ZYVOX 600 MG/D5W 600 MG/300 ML IVPB IV SCH ×2 (03:23→16:34)
[2019-05-22] MEDS: SOLU-MEDROL IV SCH ×3 (03:24→20:45)
[2019-05-22] MEDS: DUONEB (A & A) INH SCH ×6 (04:03→22:41)
[2019-05-22 04:32] LABS: ALLEN TEST YES; BE 3.6 mmoll (-3.0-3.0); BLOOD TYPE ARTERIAL; HCO3-(ACT) 27.7 mmoll (20.0-26.0); METHB 1.2 % (0.0-1.5); O2(CT) 13.3 mL/dL (15.0-23.0); PCO2(98.6) 44 mmHg (35-45); PO2(98.6) 148 mmHg (60-100); SAMPLE BLOOD; SAO2 99.2 % (95.0-100.0); THB 9.6 g/dL (11.5-17.4); pH(98.6) 7.42 (7.35-7.45)
[2019-05-22 04:33] LABS: MODALITY BI PAP
[2019-05-22 04:58] LABS: BASO# 0.02 X1000 (0.0-0.2); BASO% 0.2 % (0.0-0.8); HEMATOCRIT 31.2 % (37.0-47.0); HEMOGLOBIN 9.8 g/dL (12.0-16.0); IMM GRAN# 0.02 X1000 (0.0-0.04); IMM GRAN% 0.2 % (0.0-0.5); LYMPH# 0.59 X1000 (1.2-3.4); LYMPH% 5.8 % (20.5-51.1); MCH 30.8 PG (27-31); MCHC 31.4 g/dL (33-37); MCV 98.1 FL (81-99); MONO# 0.16 X1000 (0.11-0.59); MONO% 1.6 % (1.7-9.3); MPV 10.7 FL (7.4-10.4); NEUT# 9.41 X1000 (1.4-6.5); NEUT% 92.2 % (42.2-75.2); PLT 206 X1000 (130-400); RBC 3.18 XMIL (4.2-5.4); RDW 16.7 % (11.5-14.5)
[2019-05-22 05:25] LABS: CALCIUM 8.9 mg/dL (8.8-10.2); CREATININE 4.6 mg/dL (0.5-0.9); MAGNESIUM 1.9 mg/dL (1.5-2.7); PHOSPHORUS 6.2 mg/dL (2.7-4.5)
[2019-05-22 05:28] LABS: INR 1.15; PROTIME 14.9 Seconds (11.0-16.0)
[2019-05-22 05:29] LABS: PTT 31.5 Seconds (22.3-41.8)
[2019-05-22 05:30] LABS: ALB/GLOB RATIO 0.9; ALBUMIN 3.3 g/dL (3.5-5.0); DIRECT BILIRUBIN 0.2 mg/dL (0.00-0.20); MAGNESIUM 1.9 mg/dL (1.5-2.7); TOTAL BILIRUBIN 0.44 mg/dL (0.20-1.00); TOTAL PROTEIN 7.1 g/dL (6.3-8.3)
[2019-05-22] MEDS: PRILOSEC PO SCH (06:10)
--- NOTE | 2019-05-22 06:57 | Diag Imaging Result Doc PS360 ---
CHEST-PORTABLE - 05/22/2019 INDICATION: resp failure COMPARISON: 05/21/2019 FINDINGS: There has been improvement in the dense bilateral pulmonary edema. Stable cardiomegaly. No large pleural effusion. IMPRESSION: Significant improvement in the pulmonary edema. Electronically signed by Dnoi Rodriguez 05/22/2019 6:55 AM
[2019-05-22] MEDS ORDERED: NS 2,000 ML MISC PRN (07:22)
[2019-05-22] MEDS ORDERED: HEPARIN IV PRN (07:22)
[2019-05-22] MEDS ORDERED: TIGHT: 0.2 ML/HR FOR DIALYSIS MISC PRN (07:22)
--- NOTE | 2019-05-22 08:00 | PULMONOLOGY CONSULTATION ---
DATE: 05/21/2019 REQUESTING CLINICIAN: Dr. Terri Donovan. REASON FOR CONSULTATION: Respiratory failure. HISTORY OF PRESENT ILLNESS: Ms. Myers is a 63-year-old white female with COPD, ongoing tobacco use, end-stage renal disease on hemodialysis, who has had increased cough, increased shortness of breath, with increased sputum production for the last several days. The patient presented to the emergency room this morning with an oxygen saturation in the 60s. The patient was scheduled for dialysis today. Initial arterial blood gas revealed a pH of 7.17, pCO2 of 57, pO2 of 96 on a non- rebreather and a carboxyhemoglobin level of 9.0. Chest x-ray revealed cardiomegaly with pulmonary edema and trace bilateral effusions. The patient underwent hemodialysis with 3 L volume removed. She remains on BiPAP, but reports some clinical improvement. PAST MEDICAL HISTORY/PROBLEM LIST: 1. Diabetes mellitus, which appears to be poorly controlled. 2. End-stage renal disease on hemodialysis. 3. Chronic obstructive pulmonary disease with ongoing tobacco use/nicotine addiction. 4. Three-vessel coronary artery disease with prior stent placement in the LAD, the circumflex, the right coronary artery. 5. Chronic kidney disease due to hypertensive nephropathy on chronic hemodialysis. SOCIAL HISTORY: Ongoing tobacco use. No alcohol use listed. FAMILY HISTORY: Positive for diabetes and hypertension. REVIEW OF SYSTEMS: As noted in the HPI, but is slightly limited with BiPAP in place. PHYSICAL EXAMINATION: General: Reveals a 63-year-old white female on BiPAP, who appears much older than her stated age of 63. BP 169/80, heart rate 67, respiratory rate 23, oxygen saturation 95% on BiPAP. HEENT: Pupils are equal and reactive. Oropharynx is clear. Neck: Supple. Chest: Reveals diffuse wheezing bilaterally with scattered rhonchi. Cardiac Exam: S1, S2. Abdomen: Soft. Extremities: Without edema. IMPRESSION: A 63-year-old with: 1. Chronic obstructive pulmonary disease exacerbation. 2. Acute hypoxemic and acute hypercapnic respiratory failure. 3. Ongoing tobacco use. 4. Carbon monoxide poisoning due to excessive tobacco use. 5. End-stage renal disease on hemodialysis. RECOMMENDATIONS: 1. Continue BiPAP through the evening. 2. Continue current antibiotic regimen. 3. Initiate steroids. 4. Continue bronchodilators. 5. Ongoing counseling about the importance of smoking cessation. 6. Prognosis is guarded. cc: Vasquez Lin MD
[2019-05-22] MEDS: PULMICORT INH SCH ×2 (08:01→20:18)
--- NOTE | 2019-05-22 08:33 | EKG Report ---
Test Performed on : 05/22/2019 07:57:09 AM Test Reason : chest pain Blood Pressure : / mmHG Vent. Rate : 063 BPM Atrial Rate : 063 BPM P-R Int : 180 ms QRS Dur : 100 ms QT Int : 474 ms P-R-T Axes : 079 -42 -39 degrees QTc Int : 485 ms Sinus rhythm. with premature atrial complexes. in a pattern of bigeminy. Left axis deviation T wave abnormality, consider anterolateral ischemia Prolonged QT Abnormal ECG When compared with ECG of 21-MAY-2019 09:46, (Unconfirmed) Sinus rhythm. has replaced Atrial flutter. Nonspecific T wave abnormality now evident in Inferior leads T wave inversion now evident in Lateral leads Confirmed by [employer], Jonathan [place] ([id number]) on 05/23/2019 7:44:22 AM
[2019-05-22] MEDS: PLAVIX PO SCH (08:53)
[2019-05-22] MEDS: VICON-C PO SCH (08:53)
[2019-05-22] MEDS: VITAMIN D PO SCH (08:53)
[2019-05-22] MEDS: NEURONTIN PO SCH ×2 (08:53→20:45)
[2019-05-22] MEDS: THERA M PLUS PO SCH (08:53)
[2019-05-22] MEDS: ASPIRIN PO SCH (08:53)
[2019-05-22] MEDS: NORVASC PO SCH (08:54)
[2019-05-22] MEDS: CORDARONE PO SCH (08:54)
[2019-05-22] MEDS: SYNTHROID PO SCH (08:54)
[2019-05-22] MEDS: APRESOLINE PO SCH ×2 (08:55→20:45)
[2019-05-22] MEDS ORDERED: CELEXA PO SCH (09:00)
[2019-05-22] MEDS ORDERED: INSULIN GLARGINE 30 UNIT SUBQ SCH (09:00)
[2019-05-22 09:44] LABS: MAGNESIUM 1.9 mg/dL (1.5-2.7); PHOSPHORUS 6.4 mg/dL (2.7-4.5)
[2019-05-22 09:47] LABS: CALCIUM 9.3 mg/dL (8.8-10.2); CREATININE 4.8 mg/dL (0.5-0.9); POTASSIUM 5.1 mmol/L (3.5-5.1)
[2019-05-22] MEDS ORDERED: D50W SYRINGE IV ONE (09:47)
[2019-05-22] MEDS: LANTUS INSULIN SUBQ SCH (10:10)
[2019-05-22] MEDS: HUMALOG SUBQ SCH ×3 (11:50→20:47)
--- NOTE | 2019-05-22 12:06 | NEPHROLOGY PROGRESS NOTE ---
DATE: 05/22/2019 SUBJECTIVE: She states she is much better today. She is now on a closed face mask 100%. Recently transitioned off BiPAP. OBJECTIVE: Vital Signs: Blood pressure 156/90, heart rate 62, respirations 16, afebrile. Generally: No acute distress. Skin: Warm and dry. Conjunctivae are pink. Neck: Neck veins are not appreciated. Heart: Regular with S4. Lungs: Equal with scattered wheezes. Abdomen: Soft, nontender. Bowel sounds present. Extremities: No edema, clubbing or cyanosis. IMPRESSION: Pulmonary edema. Significant improvement but still abnormal on chest x-ray. We will plan for repeat dialysis treatment today. Lower her dry weight. Electrolytes/acid base/anemia/blood pressure on target. cc: Sonny Ashby MD
[2019-05-22 13:08] LABS: CALCIUM 9.3 mg/dL (8.8-10.2); POTASSIUM 5.1 mmol/L (3.5-5.1)
[2019-05-22 13:31] LABS: PHOSPHORUS 6.6 mg/dL (2.7-4.5)
[2019-05-22 13:42] LABS: CREATININE 5.2 mg/dL (0.5-0.9)
[2019-05-22 14:07] LABS: HEPATITIS PROFILE ACUTE SEE COMMENTS
--- NOTE | 2019-05-22 15:53 | PROGRESS NOTE ---
DATE: 05/22/2019 INTERVAL HISTORY: Patient's respiratory status markedly improved with dialysis last night. Still some dyspnea and some wheezing but much improved from previous. Remains afebrile. No acute events overnight. No new complaints. REVIEW OF SYSTEMS: Twelve point review of systems negative except as per interval history. LABORATORY: WBC 10.2, hemoglobin 9.8, hematocrit 31.2, platelets 216,000. ABG, pH 7.42, pCO2 42, PO2 148 on 50% BiPAP. Sodium 136, potassium 5.1, BUN 32, creatinine 5.2, glucose 136 to 162, phosphorus 6.6, alkaline phosphatase 163. Lactate 1.2. Otitis panel negative. IMAGING: Chest x-ray with significant improvement in pulmonary edema. VITALS: T-max 99.8, pulse 67, respirations 20, blood pressure 136/50, O2 saturation 97% on nonrebreather. PHYSICAL EXAMINATION: General: No acute distress. Vitals: As above. HEENT: Normocephalic, atraumatic. On non-rebreather. Neck: No cervical adenopathy. Cardiovascular: Regular rate and rhythm. No murmurs noted. Pulmonary: Diffuse wheezing and rhonchi but actually pretty good air entry. No accessory muscle use or increased work of breathing. Abdomen: Soft, nontender, nondistended. Bowel sounds positive. Extremities: Peripheral pulses intact. No clubbing or cyanosis. Neurologic: Cranial nerves grossly intact. No focal deficits identified. Psychiatric: Normal mood and affect. Awake, alert, oriented x3. Skin: No new rashes or lesions identified. ASSESSMENT AND PLAN: 1. Acute hypoxic and hypercapnic respiratory failure, volume overload. Patient with significant volume overload, pulmonary edema on admission, likely related to her end-stage renal disease. Dialyzed last night with marked improvement in her respiratory status. Also having chronic obstructive pulmonary disease exacerbation which it is likely contributing. Nephrology planning on dialyzing again today, which may further help her respiratory status. Continue nebulizers and steroids for the chronic obstructive pulmonary disease exacerbation. Currently on antibiotics including linezolid, but no clear sign of infection thus far. We will continue for now, but if no infection is identified, will likely discontinue antibiotics within the next 24 to 48 hours. 2. End-stage renal disease. Patient dialyzes Tuesday, Tuesday, Tuesday. Dialyzed yesterday and dialyzing again today as above. 3. Diabetes mellitus significantly uncontrolled on admission. Initially placed on drip. Glucoses have been good overnight. We will go ahead and transition her to subcutaneous Lantus and sliding scale insulin and adjust as needed. 4. Coronary artery disease. Continue home aspirin and statin. 5. Hypothyroidism. Continue Synthroid. 6. Gastroesophageal reflux disease. Continue Pepcid. 7. Diabetic neuropathy. Continue Neurontin. 8. Hypertension, reasonable control on current therapy with Norvasc, hydralazine. 9. Chronic obstructive pulmonary disease exacerbation contributing to respiratory issues as above. Still some wheezing, although moving air pretty well today. Continue nebulizers and steroids and monitor. 10. Tobacco abuse. Recommended cessation. 11. Unclear history of possible congestive heart failure. Patient reportedly congestive heart failure by history, but previous echocardiograms in our system do not really show significant heart dysfunction. Last one was over 3 years ago, so we will go ahead and repeat that to clarify whether she may have an aspect of acute on chronic heart failure.
[2019-05-22] MEDS: HEPARIN IV PRN (16:10)
[2019-05-22] MEDS: ZOFRAN IV PRN (20:30)
[2019-05-22] MEDS: LIPITOR PO SCH (20:46)
--- NOTE | 2019-05-22 21:55 | PULMONOLOGY PROGRESS NOTE ---
DATE: 05/22/2019 SUBJECTIVE: The patient is awake and alert. She has been taken off the BiPAP and is on 50%. She reports she feels significantly better today. OBJECTIVE: Vital Signs: Maximum temperature in the last 24 hours is 99.8 degrees, blood pressure 143/59, heart rate 63, respiratory rate 19, oxygen saturation 96% on Venturi mask. HEENT: Pupils are equal and reactive. Oropharynx appears clear. Neck: Supple. Chest: Reveals faint wheezing with prolonged expiratory phase. Cardiac exam: S1, S2. Abdomen: Soft. Extremities: Reveal trace edema. LABORATORIES: Chest x-ray reveals cardiomegaly and pulmonary edema which has had a significant improvement compared to yesterday. Arterial blood gas reveals pH 7.42, pCO2 of 44, PO2 of 148. Sodium 136, potassium 5.1, chloride 94, bicarbonate 25, BUN 32, creatinine 5.2, glucose 162. IMPRESSION: A 63-year-old with: 1. Acute hypoxemic and acute hypercapnic respiratory failure. 2. Chronic obstructive pulmonary disease exacerbation. 3. Pulmonary edema and fluid overload. 4. Carbon monoxide poisoning. PLAN: 1. Cycle BiPAP at bedtime and p.r.n. 2. Continue current antibiotic and steroid regimen. 3. Continue bronchodilators. 4. Encouraged smoking cessation. 5. Anticipate transfer to the floor tomorrow if she continues to improve. cc: Vasquez Lin MD
[2019-05-23] MEDS: HEPARIN SUBQ SCH ×2 (00:20→16:10)
[2019-05-23] MEDS: DUONEB (A & A) INH SCH ×6 (03:51→22:30)
[2019-05-23] MEDS: ZYVOX 600 MG/D5W 600 MG/300 ML IVPB IV SCH ×2 (04:35→16:11)
[2019-05-23] MEDS: SOLU-MEDROL IV SCH ×2 (04:35→16:11)
[2019-05-23 05:25] LABS: HEMATOCRIT 31.4 % (37.0-47.0); HEMOGLOBIN 9.6 g/dL (12.0-16.0); IMM GRAN# 0.02 X1000 (0.0-0.04); IMM GRAN% 0.2 % (0.0-0.5); LYMPH# 0.41 X1000 (1.2-3.4); MCHC 30.6 g/dL (33-37); MCV 101.3 FL (81-99); MONO# 0.24 X1000 (0.11-0.59); MONO% 2.3 % (1.7-9.3); MPV 10.6 FL (7.4-10.4); NEUT# 9.69 X1000 (1.4-6.5); NEUT% 93.5 % (42.2-75.2); PLT 211 X1000 (130-400); RDW 16.6 % (11.5-14.5); WBC 10.36 X1000 (4.8-10.8)
[2019-05-23] MEDS: HUMALOG SUBQ SCH ×4 (06:03→21:55)
[2019-05-23] MEDS: PRILOSEC PO SCH (06:03)
[2019-05-23 06:07] LABS: SEGS 98 % (42-75)
[2019-05-23] MEDS ORDERED: TIGHT: 0.2 ML/HR FOR DIALYSIS MISC PRN (06:26)
[2019-05-23] MEDS ORDERED: HEPARIN IV PRN (06:26)
[2019-05-23] MEDS ORDERED: NS 2,000 ML MISC PRN (06:26)
[2019-05-23] MEDS: PULMICORT INH SCH ×2 (07:38→19:30)
[2019-05-23] MEDS: CORDARONE PO SCH (08:02)
[2019-05-23] MEDS: APRESOLINE PO SCH ×2 (08:07→20:07)
[2019-05-23] MEDS: ASPIRIN PO SCH (08:08)
[2019-05-23] MEDS: LANTUS INSULIN SUBQ SCH ×2 (08:08→12:24)
[2019-05-23] MEDS: NEURONTIN PO SCH ×2 (08:09→20:07)
[2019-05-23] MEDS: VICON-C PO SCH (08:10)
[2019-05-23] MEDS: PLAVIX PO SCH (08:10)
[2019-05-23] MEDS: THERA M PLUS PO SCH (08:10)
[2019-05-23] MEDS: VITAMIN D PO SCH (08:10)
[2019-05-23] MEDS: SYNTHROID PO SCH (08:11)
[2019-05-23] MEDS: NORVASC PO SCH (08:16)
--- NOTE | 2019-05-23 09:02 | ECHO REPORT ---
ORDER DATE: 05/22/2019 INDICATION: Volume overload. Pulmonary edema. FINDINGS: 1. The right atrium appears normal in size at 2.7 cm. 2. Mild tricuspid regurgitation. RV systolic pressure unable to be accurately estimated. 3. Normal RV size and systolic function. 4. No significant pulmonic insufficiency. 5. Severe left atrial enlargement with a volume index of 65. 6. There is heavy mitral annular calcification all along with restriction in motion of both mitral leaflets, but primarily the posterior leaflet. There is flow acceleration across the mitral valve suggesting mitral stenosis. The peak gradient across the valve is 28 with a mean of 9.6. The valve area is 1.4 cm2; this would suggest moderate bordering on severe mitral stenosis. Mild mitral regurgitation. 7. Normal LV size, end-diastolic dimension of 4.4 cm. Mild left ventricular hypertrophy with a posterior and interventricular septal wall thickness of 1.2 cm each. Normal LV systolic function with an estimated EF of 60% to 65%. 8. Aortic valve opens well. It is trileaflet. There is no evidence of stenosis or insufficiency. The valve is somewhat poorly visualized. 9. The aorta appears normal in visualized segments. 10. No pericardial effusion is identified. cc: Efrem Davis MD
--- NOTE | 2019-05-23 13:44 | PROGRESS NOTE ---
DATE: 05/23/2019 INTERVAL HISTORY: Patient's respiratory status continues to improve after dialysis yesterday and with continued nebs and steroids. Still some faint wheezing but much improved from previous. No acute events overnight. No new complaints. REVIEW OF SYSTEMS: Twelve point review of systems negative except as per interval history. LABS: WBC 10.3, hemoglobin 9.6, hematocrit 31.4, platelets 211,000. Glucose 107 to 331. VITALS: T-max 99.8 degrees, pulse 72, respirations 16, blood pressure 146/65, O2 saturation 98% on 3 L by nasal cannula. PHYSICAL EXAMINATION: General: No acute distress. Vitals: As above. HEENT: Normocephalic, atraumatic. On nasal cannula, no cervical adenopathy. Cardiovascular: Regular rate and rhythm. No murmurs noted. Pulmonary: Faint, diffuse wheezing, improved from previous. Good air entry. Abdomen: Soft, nontender, nondistended. Bowel sounds positive. Extremities: Peripheral pulses intact. No clubbing or cyanosis. Neurologic: Cranial nerves grossly intact. No focal deficits. Psychiatric: Normal mood and affect. Awake, alert, oriented x3. Skin: No new rashes or lesions seen. ASSESSMENT AND PLAN: 1. Acute hypoxic and hypercapnic respiratory failure, volume overload. The patient with significant volume overload and pulmonary edema on admission. This is likely related to end- stage renal disease and has improved markedly with dialysis x2. Dialyzing again today to get her back on her regular schedule. She also had some wheezing, so likely an aspect of COPD exacerbation as well, which is improving with steroids and nebulizers. On empiric antibiotics, currently, but no sign of infection noted. If no infection is found, we will likely discontinue antibiotics tomorrow. 2. COPD exacerbation, likely contributing to respiratory issues as above. Still some slight wheezing but much improved from previous. Continue steroids and nebs but if she continues to improve, then may be able to discharge home on oral medications tomorrow. 3. End-stage renal disease. Patient dialyzes Tuesday, Tuesday, Tuesday. Has dialyzed last 2 days. We will dialyze again today. 4. Diabetes mellitus, seeming fairly uncontrolled on admission. Initially placed on drip converted to subcutaneous insulin yesterday with some worsening of her control. We will increase Lantus slightly and continue to monitor. 5. Coronary artery disease. Continue home aspirin and statin. 6. Hypothyroidism. Continue Synthroid. 7. Gastroesophageal reflux disease. Continue Pepcid. 8. Diabetic neuropathy. Continue Neurontin. 9. Hypertension. Some occasional elevations, but overall acceptable control on current Norvasc and hydralazine. 10. Tobacco abuse. Cessation has been discussed. 11. The patient has reported history of heart failure, but EF here is normal. Appears to have some mitral stenosis but no clear evidence of heart failure on echo here. Suspect volume overload due to end-stage renal disease status rather than heart failure. 12. Disposition: The patient doing well. Will transfer to floor today, getting dialysis again today. Continue nebulizers and steroids. If she continues to improve, then may be able to transition to p.o. medications and discharge home tomorrow.
--- NOTE | 2019-05-23 19:19 | NEPHROLOGY PROGRESS NOTE ---
DATE: 05/23/2019 SUBJECTIVE: She is awake and alert. She is coughing some. No sputum production. OBJECTIVE: Vital Signs: Blood pressure 181/70, heart rate 62, respirations 15, afebrile. General: No acute distress. Skin: Warm and dry. Neck: Neck veins are not distended. Heart: Regular. Lungs: Equal with a few scattered wheezes. Abdomen: Soft, nontender. Bowel sounds present. Extremities: No edema, clubbing, or cyanosis. IMPRESSION: Pulmonary edema, progressively improving. She will dialyze again today and continue to aggressively lower her dry weight as her blood pressure allows. Electrolytes/acid base/anemia all acceptable. No changes. cc: Sonny Ashby MD
[2019-05-23] MEDS: LIPITOR PO SCH (20:06)
--- NOTE | 2019-05-24 00:07 | PULMONOLOGY PROGRESS NOTE ---
DATE: 05/23/2019 SUBJECTIVE: The patient is awake, alert, and conversant. She feels significantly better this morning. OBJECTIVE: Vital Signs: The patient has been afebrile for the last 24 hours. Blood pressure 146/65, heart rate 71, respiratory rate 18, oxygen saturation 98% on 3 L per nasal cannula. HEENT: Pupils are equal and reactive. Oropharynx appears clear. Neck: Supple. Chest: Reveals prolonged expiratory phase with scattered wheezing. Cardiac: S1, S2. Abdomen: Soft. Extremities: Without edema. LABORATORIES: White blood count 10.36, hemoglobin 9.6, platelet count 211,000. IMPRESSION: A 63-year-old with 1. Acute hypoxemic and acute hypercapnic respiratory failure. 2. Chronic obstructive pulmonary disease exacerbation. 3. Pulmonary edema and fluid overload. 4. Carbon monoxide poisoning due to excess tobacco use. RECOMMENDATIONS: 1. Anticipate transfer to the floor today. She is having ongoing improvement. 2. Continue antibiotics and steroids, consider oral steroids tomorrow. 3. Continue bronchodilators. 4. Continue to reinforce the importance of smoking cessation. cc: Vasquez Lin MD
[2019-05-24] MEDS: SOLU-MEDROL IV SCH ×2 (01:17→09:10)
[2019-05-24] MEDS: DUONEB (A & A) INH SCH ×6 (03:03→22:45)
[2019-05-24] MEDS: ZOFRAN IV PRN (03:18)
[2019-05-24] MEDS: ZYVOX 600 MG/D5W 600 MG/300 ML IVPB IV SCH ×2 (04:40→15:38)
[2019-05-24] MEDS: HEPARIN SUBQ SCH ×2 (04:40→15:38)
[2019-05-24 05:32] LABS: HEMATOCRIT 32.8 % (37.0-47.0); IMM GRAN# 0.03 X1000 (0.0-0.04); IMM GRAN% 0.3 % (0.0-0.5); LYMPH# 0.37 X1000 (1.2-3.4); LYMPH% 3.4 % (20.5-51.1); MCH 30.8 PG (27-31); MCHC 30.5 g/dL (33-37); MCV 100.9 FL (81-99); MONO% 2.7 % (1.7-9.3); MPV 10.5 FL (7.4-10.4); NEUT# 10.29 X1000 (1.4-6.5); NEUT% 93.6 % (42.2-75.2); PLT 231 X1000 (130-400); RBC 3.25 XMIL (4.2-5.4); RDW 16.3 % (11.5-14.5); WBC 10.99 X1000 (4.8-10.8)
[2019-05-24] MEDS: HUMALOG SUBQ SCH ×4 (06:21→20:39)
[2019-05-24] MEDS: PRILOSEC PO SCH (06:21)
[2019-05-24] MEDS: PULMICORT INH SCH ×2 (07:40→19:02)
[2019-05-24] MEDS: VITAMIN D PO SCH (09:09)
[2019-05-24] MEDS: ASPIRIN PO SCH (09:09)
[2019-05-24] MEDS: THERA M PLUS PO SCH (09:09)
[2019-05-24] MEDS: CORDARONE PO SCH (09:09)
[2019-05-24] MEDS: VICON-C PO SCH (09:09)
[2019-05-24] MEDS: NEURONTIN PO SCH ×2 (09:09→20:37)
[2019-05-24] MEDS: SYNTHROID PO SCH (09:09)
[2019-05-24] MEDS: PLAVIX PO SCH (09:09)
[2019-05-24] MEDS: NORVASC PO SCH (09:09)
[2019-05-24] MEDS: APRESOLINE PO SCH ×2 (09:10→20:37)
[2019-05-24] MEDS: LANTUS INSULIN SUBQ SCH (09:13)
[2019-05-24 12:00] LABS: CALCIUM 8.9 mg/dL (8.8-10.2); CREATININE 3.6 mg/dL (0.5-0.9); POTASSIUM 4.5 mmol/L (3.5-5.1)
--- NOTE | 2019-05-24 12:45 | NEPHROLOGY PROGRESS NOTE ---
DATE: 05/24/2019 SUBJECTIVE: She is on her routine CPAP. Shortness of breath resolved. No nausea, vomiting, or other complaints. OBJECTIVE: Vital Signs: Blood pressure 137/46, heart rate 65, respirations 14, afebrile. General: Chronically ill, but no acute distress. Skin: Warm and dry. HEENT: Conjunctivae are pink. Neck: Neck veins are not distended. Heart: Regular. No gallops. Lungs: Equal. No crackles. Abdomen: Soft, nontender. Bowel sounds present. Extremities: No edema, clubbing, or cyanosis. IMPRESSION: Chronic kidney disease 5D. She has dialyzed 3 days consecutively. No dialysis today. No new labs. Volume status and blood pressure are in target. Okay for discharge from my perspective. cc: Sonny Ashby MD
--- NOTE | 2019-05-24 17:08 | PROGRESS NOTE ---
DATE: 05/24/2019 INTERVAL HISTORY: Patient is symptomatically markedly improved. Respiratory status approximately baseline. Considered discharge but when the patient was weaned off of O2, she had profound drop in her oxygen down to the low 80s. Oxygen was put back on. No new complaints. No other acute events. REVIEW OF SYSTEMS: Twelve point review of systems negative except as per interval history. LABS: WBC 10.9, hemoglobin 10.0, hematocrit 32.8, platelets 231,000. Sodium 134, potassium 4.5, BUN 26, creatinine 3.6, glucose 131 to 354. VITAL SIGNS: T-max 98.7 degrees, pulse 68, respirations 15, blood pressure 136/36, O2 saturation 98% on 3 L, approximately 80 on room air. PHYSICAL EXAMINATION: General: No acute distress. Vital signs: As above. HEENT: Normocephalic, atraumatic. Moist mucous membranes. No cervical adenopathy. Cardiovascular: Regular rate and rhythm. No murmurs noted. Pulmonary: Essentially no wheezing at this point. Good air entry. No rales or rhonchi. Abdomen: Soft, nontender, nondistended. Bowel sounds positive. Extremities: Peripheral pulses intact. No clubbing or cyanosis. Neurologic: Cranial nerves grossly intact. No focal deficits. Psychiatric: Normal mood and affect. Awake, alert, oriented x3. Skin: No new rashes or lesions identified. ASSESSMENT AND PLAN: 1. Acute hypoxic and hypercapnic respiratory failure, volume overload. Patient with significant volume overload, likely related to end-stage renal disease status. Markedly improved with dialysis x3. Symptomatically almost entirely resolved. No further wheezing but still with significant hypoxia when taken off of oxygen. Continue nebulizers and steroids 1 more day. Will reassess oxygenation tomorrow. If she still desats significantly on room air, then may have to pursue further evaluation. 2. Chronic obstructive pulmonary disease exacerbation. Clinically appears resolved with no further wheezing and good air entry, but still with some hypoxia. Continue steroids and nebs for now. 3. End-stage renal disease. Patient dialyzes Tuesday, Tuesday, Tuesday. Has dialyzed for the previous 3 days, but not today. 4. Diabetes mellitus, fairly labile. Some glucoses are pretty well controlled, but others up to the 300s. Likely at least partially due to steroids. Will not make any changes now, but we will continue monitoring. 5. Coronary artery disease. Continue home aspirin and statin. 6. Hypothyroidism. Continue Synthroid. 7. Gastroesophageal reflux disease. Continue Pepcid. 8. Diabetic neuropathy. Continue Neurontin. 9. Hypertension, stable. Monitor. 10. Tobacco abuse. Cessation has been discussed. She has been offered a nicotine patch. 11. Disposition. Initially anticipated discharge today but still significant hypoxia when taken off of oxygen. Continue treatment as is 1 more day and dialysis tomorrow and we will reassess. If hypoxia is resolved, then we will likely discharge. If still with significant drop in saturations, then may need further evaluation.
[2019-05-24] MEDS: LIPITOR PO SCH (20:36)
--- NOTE | 2019-05-24 22:47 | PULMONOLOGY PROGRESS NOTE ---
DATE: 05/24/2019 SUBJECTIVE: The patient is awake, alert and conversant. She feels significantly better. She denies shortness of breath at rest. She is tolerating p.o. intake. OBJECTIVE: The patient has been afebrile for the last 24 hours. Blood pressure 126/45, heart rate 80, respiratory rate 16, oxygen saturation 93% on 2 L per nasal cannula.HEENT: Pupils are equal and reactive. Oropharynx appears clear. Neck is supple. Chest reveals occasional rhonchi bilaterally. Cardiac exam: S1, S2. Abdomen is soft. Extremities are without edema. LABORATORY DATA: Sodium 134, potassium 4.5, chloride 95, bicarbonate 27, BUN 26, creatinine 3.6. IMPRESSION: A 63-year-old with: 1. Acute hypoxemic and acute hypercapnic respiratory failure. 2. Nicotine addiction/tobacco use. 3. Chronic obstructive pulmonary disease exacerbation. 4. Carbon monoxide poisoning associated with excess tobacco use. 5. Pulmonary edema and fluid overload. 6. Endstage renal disease, on hemodialysis. CLINICAL DISCUSSION: A 63-year-old with problems outlined above. She continues to improve. She is on 2-3 L of oxygen by nasal cannula. She is on nocturnal oxygen at home. RECOMMENDATIONS: 1. From a pulmonary standpoint, she could be discharged home tomorrow. If she needs continuous oxygen, she has oxygen at night available. She could follow up in my clinic in 2-3 weeks. 2. Continue antibiotics with a steroid taper. 3. Continue bronchodilators. 4. Continue to reinforce the importance of smoking cessation. cc: Vasquez Lin MD
[2019-05-25] MEDS: DUONEB (A & A) INH SCH ×3 (03:15→12:16)
[2019-05-25] MEDS: HEPARIN SUBQ SCH (04:51)
[2019-05-25] MEDS: ZYVOX 600 MG/D5W 600 MG/300 ML IVPB IV SCH (04:51)
[2019-05-25 05:28] LABS: BASO# 0.01 X1000 (0.0-0.2); BASO% 0.1 % (0.0-0.8); EOS# 0.03 X1000 (0.0-0.7); EOS% 0.3 % (0.0-10.0); HEMATOCRIT 32.1 % (37.0-47.0); HEMOGLOBIN 9.8 g/dL (12.0-16.0); IMM GRAN# 0.06 X1000 (0.0-0.04); IMM GRAN% 0.5 % (0.0-0.5); LYMPH# 1.39 X1000 (1.2-3.4); LYMPH% 12.4 % (20.5-51.1); MCH 30.2 PG (27-31); MCHC 30.5 g/dL (33-37); MCV 99.1 FL (81-99); MONO# 0.75 X1000 (0.11-0.59); MONO% 6.7 % (1.7-9.3); MPV 10.1 FL (7.4-10.4); NEUT# 8.94 X1000 (1.4-6.5); PLT 246 X1000 (130-400); RBC 3.24 XMIL (4.2-5.4); WBC 11.18 X1000 (4.8-10.8)
[2019-05-25] MEDS: HUMALOG SUBQ SCH ×2 (06:05→15:21)
[2019-05-25] MEDS: PRILOSEC PO SCH (06:06)
[2019-05-25] MEDS ORDERED: HEPARIN IV PRN (06:42)
[2019-05-25] MEDS ORDERED: NS 2,000 ML MISC PRN (06:42)
[2019-05-25] MEDS ORDERED: TIGHT: 0.2 ML/HR FOR DIALYSIS MISC PRN (06:42)
[2019-05-25 07:54] VITALS: BP 113/46
[2019-05-25] MEDS: PULMICORT INH SCH (08:18)
[2019-05-25] MEDS ORDERED: PREDNISONE PO SCH (09:00)
[2019-05-25] MEDS: CORDARONE PO SCH (13:09)
[2019-05-25] MEDS: VITAMIN D PO SCH (13:11)
[2019-05-25] MEDS: SYNTHROID PO SCH (13:11)
[2019-05-25] MEDS: NEURONTIN PO SCH (13:11)
[2019-05-25] MEDS: PLAVIX PO SCH (13:11)
[2019-05-25] MEDS: THERA M PLUS PO SCH (13:11)
[2019-05-25] MEDS: ASPIRIN PO SCH (13:12)
[2019-05-25] MEDS: APRESOLINE PO SCH (13:12)
[2019-05-25] MEDS: NORVASC PO SCH (13:12)
[2019-05-25] MEDS: VICON-C PO SCH (13:12)
[2019-05-25] MEDS: LANTUS INSULIN SUBQ SCH (13:14)
--- NOTE | 2019-05-25 16:08 | NEPHROLOGY PROGRESS NOTE ---
DATE: 05/25/2019 SUBJECTIVE: She anticipates discharge after her treatment today. Shortness of breath has returned to baseline and she is now on room air. She has oxygen at home. OBJECTIVE: Vital Signs: Blood pressure 113/46, heart rate 53 respiration 18, afebrile. General: No acute distress. Skin: Warm and dry. Neck: Neck veins are not visible. Heart: Regular without gallops. Lungs: Equal without crackles. Abdomen: Soft, nontender. Bowel sounds present. Extremities: Minimal edema. No clubbing or cyanosis. IMPRESSION: 1. Chronic kidney disease 5D. She is back on her routine dialysis schedule. 2. Volume overload. Improved with increased dialysis frequency this week. 3. Electrolytes/acid base/anemia/hypertension all on target. Okay for discharge. cc: Sonny Ashby MD
--- NOTE | 2019-05-26 19:02 | DISCHARGE SUMMARY ---
ADMISSION DATE: 05/21/2019 DISCHARGE DATE: 05/25/2019 CONSULTS: Pulmonology Dr. Lin, nephrology Dr. Ashby. PERTINENT STUDIES: Initial chest x-ray with cardiomegaly, pulmonary edema, trace pleural effusions. Echocardiogram showing some left atrial enlargement, moderate to severe mitral stenosis, normal EF of 60 to 65. Initial ABG with pH 7.37, pCO2 48, PO2 62, discharge ABG pCO2 44, pH 7.4. HOSPITAL COURSE: The patient presented initially with shortness of breath which was rapidly progressive over the previous day. On admission she was found to be clinically volume overloaded as well significantly hypoxic with initial saturation in the 60s. She was placed on BiPAP and oxygen with improvement. Nephrology was consulted and they came and placed the patient on dialysis emergently. After dialysis patient's dyspnea was markedly improved. The patient was also found to have some diffuse wheezing but reasonable air entry. Had some mild hypercapnia on initial ABG. So she was put on nebs and steroids. The patient ended up being dialyzed 3 days in a row along with duo nebs and steroids with resolution of her dyspnea. On 05/24 discharge was considered but when patient was taken off oxygen she desaturated down to 80. So steroids and nebs continue 1 more day. The next day patient again had some desaturations although not quite as bad. It was thought that patient may have an aspect of chronic hypoxic respiratory failure and home oxygen was arranged. The patient was already using oxygen at night but was instructed to use her oxygen during the day as well. It was thought the patient was likely to need oxygen for the foreseeable future as she was no longer volume overloaded and her COPD exacerbation was completely resolved at that point. Echocardiogram was obtained to see if patient may have an aspect of CHF as well. However echocardiogram showed essentially normal function although she did have some significant mitral stenosis that may eventually need to be worked on. Patient did have significant hyperglycemia on admission with glucose up to 857 but this responded quite well to initial insulin and she was overall reasonably controlled for most of her admission. No evidence of bacterial infection was found so patient was not given antibiotics. DISCHARGE DIAGNOSIS: 1. Acute hypoxemic and hypercapnic respiratory failure. 2. Chronic hypoxic respiratory failure. 3. End-stage renal disease. 4. Chronic obstructive pulmonary disease exacerbation. 5. Uncontrolled diabetes mellitus. 6. Coronary artery disease . 7. Hypothyroidism. 8. Gastroesophageal reflux disease. 9. Diabetic neuropathy. 10. Hypertension. 11. Tobacco abuse. DISCHARGE VITALS: Temperature 97.7 degrees, pulse 53, respirations 18, blood pressure 113/46, O2 saturation 100% on 3 L by nasal cannula, 86% on room air. DISCHARGE DIET: Renal, diabetic, low salt . DISCHARGE MEDICATIONS: Gabapentin as previously prescribed, atorvastatin 10 mg p.o. at bedtime, hydralazine 75 mg p.o. b.i.d., Celexa 40 mg p.o. daily, amiodarone 100 mg p.o. daily, famotidine 40 mg p.o. b.i.d., multivitamin daily, Norvasc 10 mg p.o. daily, NovoLog FlexPen as previously prescribed, Plavix 75 mg p.o. daily, Synthroid 175 mcg p.o. daily, albuterol inhaler as needed, aspirin 81 mg p.o. daily, Lantus 30 units subcu daily, Medrol Dosepak as directed, albuterol inhaler as needed. FOLLOWUP AND PLAN: Patient discharging home on continuous oxygen with short steroid taper. Patient to follow up with PCP, nephrology and pulmonology. Patient instructed on the importance of compliance with her insulin. TIME SPENT: Greater than 30 minutes spent counseling patient and arranging discharge.
== END 2019-05-25 15:23 | disposition home or self-care (01) | DRG 640 ==
LOC: SUPCPDRO → ED 09:31 → SUATTDRO 12:42 → ICU 12:42 → 1N 05-23 18:24
PROVIDERS: ATTEND Internal Medicine

== ENCOUNTER 2019-06-25 12:07 | Inpatient (IN) ==
[2019-06-29 09:03] VITALS: BP 125/43
== END 2019-06-29 16:06 | disposition home health service (06) | DRG 640 ==
LOC: SUPCPDRO → ED 12:07 → SUATTDRO 16:20 → ICU 16:20 → 1N 06-27 12:34
PROVIDERS: ATTEND Internal Medicine

== ENCOUNTER 2019-10-29 06:52 | Inpatient (IN) ==
--- NOTE | 2019-10-29 07:14 | EKG Report ---
Test Performed on : 10/29/2019 07:03:00 AM Test Reason : shortness of breath Blood Pressure : / mmHG Vent. Rate : 070 BPM Atrial Rate : 070 BPM P-R Int : 238 ms QRS Dur : 112 ms QT Int : 450 ms P-R-T Axes : 070 -40 069 degrees QTc Int : 486 ms Sinus rhythm. with 1st degree AV block. Left axis deviation Cannot rule out Anterior infarct , age undetermined Abnormal ECG When compared with ECG of 25-JUN-2019 12:35, Sinus rhythm. has replaced Ectopic atrial rhythm. QRS duration has decreased Unconfirmed Result
--- NOTE | 2019-10-29 07:41 | Diag Imaging Result Doc PS360 ---
CHEST-1 VIEW - 10/29/2019 INDICATION: sob COMPARISON: 06/28/2019 FINDINGS: There is cardiomegaly and pulmonary vascular congestion. There are diffuse bilateral interstitial infiltrates with prominent curly B lines. There are trace bilateral pleural effusions. IMPRESSION: Congestive heart failure. Electronically signed by Doni Rodriguez 10/29/2019 7:39 AM
[2019-10-29 07:50] LABS: ALLEN TEST YES; BE -1.1 mmoll (-3.0-3.0); BLOOD TYPE ARTERIAL; HCO3-(ACT) 23.8 mmoll (20.0-26.0); METHB 1.2 % (0.0-1.5); O2(CT) 10.1 mL/dL (15.0-23.0); PCO2(98.6) 46 mmHg (35-45); SAMPLE BLOOD; SAO2 86.8 % (95.0-100.0); THB 8.8 g/dL (11.5-17.4); pH(98.6) 7.34 (7.35-7.45)
[2019-10-29 07:52] LABS: MODALITY CANNULA; O2HB 81.4 % (95.0-99.0); PO2(98.6) 47 mmHg (60-100)
[2019-10-29 07:53] LABS: INR 1.03; PROTIME 13.6 Seconds (11.0-16.0)
[2019-10-29 08:02] LABS: BASO# 0.06 X1000 (0.0-0.2); BASO% 0.6 % (0.0-0.8); EOS# 0.07 X1000 (0.0-0.7); EOS% 0.7 % (0.0-10.0); HEMATOCRIT 29.5 % (37.0-47.0); HEMOGLOBIN 9.1 g/dL (12.0-16.0); LYMPH# 0.72 X1000 (1.2-3.4); LYMPH% 6.9 % (20.5-51.1); MCH 29.4 PG (27-31); MCHC 30.8 g/dL (33-37); MCV 95.5 FL (81-99); MONO# 0.57 X1000 (0.11-0.59); MONO% 5.4 % (1.7-9.3); MPV 10.6 FL (7.4-10.4); NEUT# 9.07 X1000 (1.4-6.5); NEUT% 86.4 % (42.2-75.2); PLT 233 X1000 (130-400); RBC 3.09 XMIL (4.2-5.4); RDW 15.3 % (11.5-14.5); WBC 10.49 X1000 (4.8-10.8)
[2019-10-29] MEDS ORDERED: LASIX IV ONE (08:14)
[2019-10-29 08:20] LABS: ALB/GLOB RATIO 1.3; ALBUMIN 4.1 g/dL (3.5-5.0); CALCIUM 8.5 mg/dL (8.8-10.2); CREATININE 6.3 mg/dL (0.5-0.9); TOTAL BILIRUBIN 0.47 mg/dL (0.20-1.00); TOTAL PROTEIN 7.2 g/dL (6.3-8.3)
[2019-10-29] MEDS ORDERED: HUMULIN R SUBQ ONE (08:23)
[2019-10-29] MEDS ORDERED: HUMULIN R IV ONE ×2 (08:58→09:59)
--- NOTE | 2019-10-29 09:13 | PROVIDER DOCUMENTATION ---
HPI-Respiratory General - General Chief Complaint: Shortness of Breath Stated Complaint: SOB Time Seen by Provider: 10/29/19 07:07 Allergies/Adverse Reactions: Patient Allergies Allergy/AdvReac Type Severity Reaction Status Date / Time carisoprodol [From Soma] Allergy Mild HIVES Verified 10/29/19 07:19 Penicillins Allergy RASH Verified 10/29/19 07:19 Home Medications: Home Medication List Medication Instructions Recorded Confirmed Last Taken Type Albuterol Sulfate Inhaler 2 puff INH [id number] PRN 02/20/15 10/29/19 10/29/19 History [Ventolin Hfa] Aspirin 81 mg PO DAILY #30 chewtab 10/24/15 10/29/19 10/28/19 Rx Amiodarone [Cordarone] 100 mg PO DAILY 01/19/16 10/29/19 10/28/19 History Cholecalciferol (Vit D3) [Vitamin 5,000 unit PO DAILY 01/19/16 10/29/19 10/28/19 History D] Vitamin B Complex 1 each PO DAILY 01/19/16 10/29/19 10/28/19 History Clopidogrel [Plavix] 75 mg PO DAILY 07/26/17 10/29/19 10/28/19 History ATORVAstatin [Lipitor] 10 mg PO QHS 05/21/19 10/29/19 10/28/19 History Amlodipine [Norvasc] 10 mg PO DAILY 05/21/19 10/29/19 10/28/19 History Citalopram [Celexa] 40 mg PO DAILY 05/21/19 10/29/19 10/28/19 History Gabapentin [Neurontin] 100 mg PO BID 05/21/19 10/29/19 10/28/19 History Levothyroxine [Synthroid] 175 microgm PO QHS 05/21/19 10/29/19 10/28/19 History Insulin Glargine [Lantus] 20 unit SUBQ BID 06/05/19 10/29/19 06/05/19 History Hydralazine [Apresoline] 1.5 tab PO BID 06/25/19 10/29/19 10/28/19 History Insulin Aspart [Novolog] 5 unit SQ TID AC 10/29/19 10/29/19 10/28/19 History Omeprazole 1 cap PO DAILY 10/29/19 10/29/19 10/28/19 History - History of Present Illness-Resp Nature of Presenting Problem: 64 y/o WF c/o severe SOB for the past 2 days. Past History - Adult - PAST MEDICAL HISTORY-ADULT Major Childhood Illnesses: reports: denies history Cardiovascular: reports: CAD, CHF, HTN, hyperlipidemia Respiratory: reports: denies history Gastrointestinal: reports: GERD Obstetrical/Gynecological: reports: denies history Genitourinary: reports: dialysis, ESRD, kidney disease Musculoskeletal: reports: other (Restless Leg Syndrome) Neurological: reports: denies history Endocrine/Immune: reports: Diabetes, thyroid disorder Other Conditions: reports: denies history - PRIOR SURGERIES/PROCEDURES Surgical/Procedure History: reports: cardiac stent - IMMUNIZATION STATUS Childhood Immunizations: See Nurse Assessment Flu Vaccine: See Nurse Assessment - FAMILY HISTORY Family History: reviewed, not pertinent Progress - PLAN OF CARE/RESULTS Progress/Plan/Lab Results: Vital Signs - 8 hr 10/29/19 07:06 10/29/19 08:00 Temperature 98.2 F Pulse Rate 70 Respiratory Rate 20 Blood Pressure 178/68 O2 Sat by Pulse Oximetry 92 L 97 Laboratory Results - last 24 hr 10/29/19 10/29/19 10/29/19 07:28 07:28 07:28 WBC RBC Hgb Hct MCV MCH MCHC RDW Std Deviation Plt Count MPV Immature Gran % (Auto) Neut % (Auto) Lymph % (Auto) [place] % (Auto) Eos % (Auto) Baso % (Auto) Immature Gran # (Auto) Neut # (Auto) Lymph # (Auto) [place] # (Auto) Eos # (Auto) Baso # (Auto) PT INR PTT (Actin FS) Specimen Type Sample Site pH pCO2 pO2 HCO3 Base Excess Oxyhemoglobin ABG O2 Sat (Calculated) ABG O2 Saturation ABG Carboxyhemoglobin ABG Methemoglobin [place] Test A-a O2 Difference Total Hemoglobin Lactate Liter Flow Blood Gas Modality FiO2 % Sodium 129 L Potassium 6.0 H* Chloride 88 L Carbon Dioxide 23 L Anion Gap 18 BUN 40 H Creatinine 6.3 H Estimated GFR/1.73 m2 7 BUN/Creatinine Ratio 6 Glucose 790 H* Calculated Osmolality 307 Calcium 8.5 L Total Bilirubin 0.47 AST 14 ALT 10 Alkaline Phosphatase 162 H Troponin T High Sens [id number] Pept > 93522 H Total Protein 7.2 Albumin 4.1 Globulin 3.1 Albumin/Globulin Ratio 1.3 Plasma Lactate 1.1 10/29/19 10/29/19 10/29/19 07:28 07:28 07:28 WBC 10.49 RBC 3.09 L Hgb 9.1 L Hct 29.5 L MCV 95.5 MCH 29.4 MCHC 30.8 L RDW Std Deviation 15.3 H Plt Count 233 MPV 10.6 H Immature Gran % (Auto) 0.0 Neut % (Auto) 86.4 H Lymph % (Auto) 6.9 L [place] % (Auto) 5.4 Eos % (Auto) 0.7 Baso % (Auto) 0.6 Immature Gran # (Auto) 0.00 Neut # (Auto) 9.07 H Lymph # (Auto) 0.72 L [place] # (Auto) 0.57 Eos # (Auto) 0.07 Baso # (Auto) 0.06 PT 13.6 INR 1.03 PTT (Actin FS) 31.0 Specimen Type Sample Site pH pCO2 pO2 HCO3 Base Excess Oxyhemoglobin ABG O2 Sat (Calculated) ABG O2 Saturation ABG Carboxyhemoglobin ABG Methemoglobin [place] Test A-a O2 Difference Total Hemoglobin Lactate Liter Flow Blood Gas Modality FiO2 % Sodium Potassium Chloride Carbon Dioxide Anion Gap BUN Creatinine Estimated GFR/1.73 m2 BUN/Creatinine Ratio Glucose Calculated Osmolality Calcium Total Bilirubin AST ALT Alkaline Phosphatase Troponin T High Sens 193 H* [id number] Pept Total Protein Albumin Globulin Albumin/Globulin Ratio Plasma Lactate 10/29/19 07:39 WBC RBC Hgb Hct MCV MCH MCHC RDW Std Deviation Plt Count MPV Immature Gran % (Auto) Neut % (Auto) Lymph % (Auto) [place] % (Auto) Eos % (Auto) Baso % (Auto) Immature Gran # (Auto) Neut # (Auto) Lymph # (Auto) [place] # (Auto) Eos # (Auto) Baso # (Auto) PT INR PTT (Actin FS) Specimen Type ARTERIAL Sample Site L RADIAL pH 7.34 L pCO2 46 H pO2 47 L* HCO3 23.8 Base Excess -1.1 Oxyhemoglobin 81.4 L* ABG O2 Sat (Calculated) 10.1 L ABG O2 Saturation 86.8 L ABG Carboxyhemoglobin 5.00 H ABG Methemoglobin 1.2 [place] Test YES A-a O2 Difference 152.0 Total Hemoglobin 8.8 L Lactate 0.90 Liter Flow 4.0 Blood Gas Modality CANNULA FiO2 % 36.0 Sodium Potassium Chloride Carbon Dioxide Anion Gap BUN Creatinine Estimated GFR/1.73 m2 BUN/Creatinine Ratio Glucose Calculated Osmolality Calcium Total Bilirubin AST ALT Alkaline Phosphatase Troponin T High Sens [id number] Pept Total Protein Albumin Globulin Albumin/Globulin Ratio Plasma Lactate Orders Category Date Time Status NEWS Score 2-4:Order NEWS Lactate Series NOW Care 10/29/19 07:10 Active CHEST-1 VIEW [RAD] Stat Exams 10/29/19 07:08 Completed ABG [RESP] Routine Lab 10/29/19 07:39 Completed CBC WITH ELECTRONIC DIFF [HEME] Stat Lab 10/29/19 07:28 Completed COMPREHENSIVE METABOLIC PANEL [CHEM] Stat Lab 10/29/19 07:28 Completed Ketone [ACETONE SERUM] [CHEM] Stat Lab 10/29/19 07:28 Received LACTATE, PLASMA [CHEM] Lab 10/29/19 10:15 Uncollected LACTATE, PLASMA [CHEM] Lab 10/29/19 13:15 Uncollected LACTATE, PLASMA [CHEM] Q3H Lab 10/29/19 07:28 Completed PRO B-NATRIURETIC PEPTIDE Stat Lab 10/29/19 07:28 Completed PROTIME WITH INR [COAG] Stat Lab 10/29/19 07:28 Completed PTT [COAG] Stat Lab 10/29/19 07:28 Completed TROPONIN T HIGH SENSITIVITY Stat Lab 10/29/19 07:28 Completed Furosemide [Lasix] Med 10/29/19 08:14 Discontinued 40 mg IV NOW ONE Insulin Human Regular [Humulin R] Med 10/29/19 08:58 Discontinued 10 unit IV NOW ONE Insulin Human Regular [Humulin R] Med 10/29/19 08:23 Discontinued 10 unit SUBQ NOW ONE BIPAP Stat Oth 10/29/19 07:28 Active Oxygen Device Stat Oth 10/29/19 07:09 Active EKG [EKG] Stat Ther 10/29/19 06:50 Draft Result Diagrams: 10/29/19 07:28 10/29/19 07:28 Departure - Departure Referrals and Follow-Ups: Anatoly Grajeda MD [Primary Care Provider] -
[2019-10-29] MEDS ORDERED: NS 2,000 ML MISC PRN (10:30)
[2019-10-29] MEDS ORDERED: VENTOLIN HFA INH PRN (12:30)
--- NOTE | 2019-10-29 13:40 | NEPHROLOGY CONSULTATION ---
DATE: 10/29/2019 TIME SEEN: 09:30. CHIEF COMPLAINT: Shortness of breath. HISTORY OF PRESENTING ILLNESS: This is a 64-year-old white female with a past medical history of end-stage renal disease requiring hemodialysis on Tuesday, Tuesday, and Tuesday, who is known to our service. She also has a history of coronary artery disease, type 2 diabetes mellitus, hypertension, and congestive heart failure. Her troubles began around 2:30 this morning when she woke up from her sleep with shortness of breath. She complains of her back hurting from consistent cough with clear sputum. She denies any fever, chills, postnasal drip, recent exposure to the flu, or chest pain. She had one episode of vomiting while she was eating her lunch yesterday around 2:00 in the afternoon. She has had issues with this in the past and has seen Dr. [place]. Her last hemodialysis treatment was on Tuesday. She has been coming in with 2 to 3 L of extra fluid. She voices having her dry weight adjusted lately for unintentional weight loss. Upon arrival to the ED, she was placed on BiPAP. Her arterial blood gas revealed a PO2 of 47 and oxyhemoglobin of 81.4. Her potassium was 6, and her sodium 129. Also, her glucose is 790. She has a plasma lactate of 2.7. Her chest x-ray reveals cardiomegaly and pulmonary vascular congestion. There are diffuse bilateral interstitial infiltrates with prominent Derek B-lines. There are trace bilateral pleural effusions. She is being admitted for evaluation and treatment of CHF exacerbation, chronic renal failure, and uncontrolled diabetes. PAST MEDICAL HISTORY: Chronic kidney disease stage 5D with hemodialysis on Tuesday, Tuesday, and Tuesday, coronary artery disease with history of PTCA x3, type 2 diabetes mellitus, diabetic neuropathy, GERD, hypertension, hypothyroidism, restless legs syndrome, chronic anemia, and congestive heart failure. PAST SURGICAL HISTORY: AV fistula placement and PTCA. Full teeth extraction in July of 2019. SOCIAL HISTORY: She lives with her brother. Admits to smoking cigarettes currently. Denies any alcohol or illicit drug use. FAMILY HISTORY: Positive for heart disease and diabetes mellitus type 2. ALLERGIES: Penicillin and carisoprodol. HOME MEDICATIONS: Albuterol sulfate inhaler, amiodarone, amlodipine, aspirin, atorvastatin, vitamin D3, citalopram, Plavix, gabapentin, hydralazine, NovoLog, Lantus, Synthroid, omeprazole, and vitamin B complex. REVIEW OF SYSTEMS: Fourteen point review of system complete. All pertinent positives listed above in the HPI. PHYSICAL EXAMINATION: Vital Signs: Temperature 98.2 degrees, pulse 66, respirations 20, blood pressure 167/65, and O2 saturation 100% on BiPAP. General: Chronically ill- appearing white female lying in bed in no acute distress. HEENT: Normocephalic, atraumatic. Conjunctiva pale. Pupils equal and reactive. Skin: Warm and dry. Bronze in color. Neck: Positive JVD in the upright position in bed. Cardiovascular: S1, S2. Regular rate and rhythm. Systolic murmur noted. No gallop. Respiratory: Lungs clear to auscultation anteriorly. Abdomen: Soft, obese, nontender, and nondistended. Active bowel sounds. : Not inspected. Extremities: Trace edema to the bilateral lower extremities that extends to the hips. Neurological: Alert and oriented to person, place, and time. LABORATORY: Sodium 129, potassium 6.9, chloride 88, carbon dioxide 23, anion gap 18, BUN 40, creatinine 6.3, most recent glucose 628, and plasma lactate 2.7. WBC 10.49, hemoglobin 9.1, hematocrit 29.5, and platelet count 233,000. IMAGING: Chest x-ray impression: Cardiomegaly and pulmonary vascular congestion. Diffuse bilateral interstitial infiltrates with prominent Derek B lines. There are trace bilateral pleural effusions. ASSESSMENT AND PLAN: 1. Chronic kidney disease stage 5D. Patient will have inpatient hemodialysis with a 2K bath and attempt ultrafiltration to last outpatient dry weight for 3.5 hours. It is likely that she will need hemodialysis again tomorrow. We will evaluate. 2. Blood pressure, slightly elevated. She did not take her home medications this morning. Defer to primary for restarting home medications. 3. Fluid volume. Expanded. Manage with hemodialysis. 4. Anemia. Stable. Does not meet transfusion criteria. 5. Electrolytes. Hyperkalemia. We will help manage this with hemodialysis. 6. Acid-base balance. 7. Metabolic anion gap acidosis. Multifactorial. Elevated lactate, elevated glucose, and renal failure. We will order an acetone level. 8. Nutrition. Defer to primary. 9. Hyperglycemia. We will order an acetone level. Defer to primary for treatment. 10. Exacerbation of congestive heart failure. Defer to primary. We will help manage this with hemodialysis. I would like to thank you for allowing us to follow with this patient. Dictated by LACEY Courtney for Sonny Ashby MD Face to face encounter, data reviewed, discussed with Yaneli Lucas on 10/29/19. I agree with the above assessment and plan of care. cc: MD Anatoly Cam MD [facility]
--- NOTE | 2019-10-29 13:43 | HISTORY AND PHYSICAL ---
CHIEF COMPLAINT: Shortness of breath. HISTORY OF PRESENT ILLNESS: Ms. Myers is a 64-year-old female who presented to the emergency room with acute onset shortness of breath with her pulse oximetry dropping into as low as 70%. She denied having any chest pain, but did complain of having progressively worsening swelling in her lower extremities for the past week. She is a poor historian. PAST MEDICAL HISTORY: 1. Coronary artery disease. 2. Type 2 diabetes mellitus that has been poorly controlled. 3. Hypertension. 4. Dyslipidemia. 5. Hypothyroidism. 6. End-stage renal disease and has been on hemodialysis. 7. Depression. PAST SURGICAL HISTORY: Cervical fusion. SOCIAL HISTORY: Patient has been smoking tobacco, 1 pack of cigarettes per day, since 1983. She does not drink alcohol on a regular basis and does not use any recreational drugs. FAMILY HISTORY: Noncontributory. ALLERGIES: Patient reports to be allergic to penicillin. MEDICATIONS: Current home medications: 1. Amiodarone 100 mg orally once daily. 2. Amlodipine 10 mg orally once daily. 3. Aspirin 81 mg orally once daily. 4. Clopidogrel 25 mg orally once daily. 5. Atorvastatin 10 mg orally once daily at bedtime. 6. Calcium acetate 667 mg, 2 capsules with each meal 3 times a day as directed. 7. Citalopram 40 mg orally once daily. 8. Famotidine 40 mg orally twice daily. 9. Gabapentin 100 mg 1 capsule in the morning and 2 capsules at bedtime. 10. Hydralazine 75 mg twice daily. 11. Lantus 40 units subcutaneously once every 24 hours. 12. Lispro insulin 5 units subcutaneously 3 times a day with meals as directed. 13. Levothyroxine 175 mcg orally once daily. REVIEW OF SYSTEMS: A full review of systems could not be obtained since patient is a poor historian. She does complain of having some nausea and coughing spells. PHYSICAL EXAMINATION: VITAL SIGNS: Temperature 98.2 degrees, pulse 68 per minute, respiratory rate 20 per minute, blood pressure 156/62, pulse oximetry 96% on BiPAP. GENERAL: The patient is alert and oriented x3. She appears to be slightly dyspneic. HEENT: Within normal limits. NECK: Supple without any thyromegaly. LYMPHATICS: No lymphadenopathy noted in the neck region. CHEST: Chest wall is nontender. CARDIOVASCULAR SYSTEM: First and second heart sounds are audible without murmurs or gallops. Bilateral 1 to 2+ pedal edema is present. RESPIRATORY SYSTEM: The patient is slightly tachypneic. Bilateral lung air entry is slightly decreased but there are no rales or rhonchi present on auscultation. GASTROINTESTINAL SYSTEM: Abdomen is soft and nondistended. It is nontender on palpation and normal bowel sounds are present. MUSCULOSKELETAL SYSTEM: No deformities are present. Range of motion in muscle joints somewhat limited secondary to osteoarthritis. GENITOURINARY: Deferred. NEUROLOGIC: No focal deficits are present. PSYCHIATRIC: Normal affect noted. INTEGUMENTARY: Skin is warm and dry without any rash. DIAGNOSTIC DATA: CBC shows WBC count of 10.49, hemoglobin 9.1, hematocrit 29.5, and platelet count of 233,000. Comprehensive metabolic panel showed sodium levels of 129, potassium 6.0, BUN 40, creatinine 6.3, calcium 8.5, glucose levels 790, and alkaline phosphatase 162. Rest of the comprehensive metabolic panel is nondiagnostic. High sensitivity troponin T levels were found to be 193 and proBNP was greater than 35,000. Plasma lactate levels have been elevated at 2.7. Chest x-ray obtained at the emergency room showed diffuse bilateral interstitial infiltrates with prominent Derek B lines and trace bilateral pleural effusions consistent with congestive heart failure. EKG obtained in the emergency room showed sinus rhythm with ventricular rate of 70 beats per minute with poor R-wave progression in precordial leads. IMPRESSION: 1. Dyspnea with volume overload causing congestive heart failure and acute hypoxemic respiratory failure in this 64-year-old female who also has end-stage renal disease, along with poorly controlled type 2 diabetes mellitus, hyperkalemia and hyponatremia. 2. Multiple comorbid conditions including coronary artery disease, hypertension, dyslipidemia, and hypothyroidism. PLAN: The patient will be admitted to the medical floor and we are going to consult Dr. Ashby from Nephrology service whom I believe has already been contacted from the emergency department. The patient will undergo hemodialysis today that should help improve her symptoms. This includes her oxygen status and electrolyte disturbances. Although her lactate levels have been elevated, I am not certain about any diagnosis of sepsis or any sort of infection. We are going to obtain urinalysis and urine culture if indicated. I am also going to obtain 2 sets of blood cultures for further evaluation. I am going to hold off any systemic antibiotics at this time. We are going to continue her routine home medications and I am going to start her on lispro insulin subcutaneously as per sliding scale for her glucose control. She will continue with Lantus 40 units a day, however. We will provide her supportive care and follow hospital course. cc: Anatoly Grajeda MD [facility]
[2019-10-29] MEDS: NEURONTIN PO SCH (23:24)
[2019-10-29] MEDS: HUMALOG SUBQ SCH ×2 (23:24→23:56)
[2019-10-29] MEDS: PHOSLO PO SCH (23:24)
[2019-10-29] MEDS: LIPITOR PO SCH (23:54)
[2019-10-29] MEDS: SYNTHROID PO SCH (23:55)
[2019-10-29] MEDS: PEPCID PO SCH (23:55)
[2019-10-29] MEDS: APRESOLINE PO SCH (23:56)
[2019-10-29] MEDS: LANTUS INSULIN SUBQ SCH (23:57)
[2019-10-30 03:12] LABS: ALLEN TEST YES; BE 8.2 mmoll (-3.0-3.0); BLOOD TYPE ARTERIAL; HCO3-(ACT) 31.3 mmoll (20.0-26.0); METHB 1.5 % (0.0-1.5); O2(CT) 12.6 mL/dL (15.0-23.0); O2HB 95.2 % (95.0-99.0); PCO2(98.6) 45 mmHg (35-45); PO2(98.6) 128 mmHg (60-100); SAMPLE BLOOD; SAO2 97.9 % (95.0-100.0); THB 9.2 g/dL (11.5-17.4); pH(98.6) 7.47 (7.35-7.45)
[2019-10-30 03:13] LABS: MODALITY BI PAP
[2019-10-30] MEDS ORDERED: D50W SYRINGE IV ONE (03:14)
[2019-10-30 05:25] LABS: BASO# 0.07 X1000 (0.0-0.2); BASO% 1.1 % (0.0-0.8); EOS# 0.15 X1000 (0.0-0.7); EOS% 2.3 % (0.0-10.0); HEMATOCRIT 28.1 % (37.0-47.0); HEMOGLOBIN 8.7 g/dL (12.0-16.0); LYMPH# 0.78 X1000 (1.2-3.4); MCH 29.7 PG (27-31); MCV 95.9 FL (81-99); MONO# 0.51 X1000 (0.11-0.59); MONO% 7.8 % (1.7-9.3); NEUT# 4.99 X1000 (1.4-6.5); NEUT% 76.8 % (42.2-75.2); PLT 215 X1000 (130-400); RBC 2.93 XMIL (4.2-5.4); RDW 15.7 % (11.5-14.5)
[2019-10-30 05:59] LABS: CALCIUM 9.1 mg/dL (8.8-10.2); CREATININE 4.3 mg/dL (0.5-0.9); MAGNESIUM 2.1 mg/dL (1.5-2.7); POTASSIUM 4.4 mmol/L (3.5-5.1)
[2019-10-30] MEDS: HUMALOG SUBQ SCH ×4 (06:34→21:22)
[2019-10-30] MEDS ORDERED: TIGHT: 0.2 ML/HR FOR DIALYSIS MISC PRN (07:14)
[2019-10-30] MEDS ORDERED: HEPARIN IV PRN (07:14)
[2019-10-30] MEDS ORDERED: NS 2,000 ML MISC PRN (07:14)
--- NOTE | 2019-10-30 08:14 | PROGRESS NOTE ---
DATE: 10/30/2019 SUBJECTIVE: Patient feels better but still has some coughing and minimal dyspnea. OBJECTIVE: Vital Signs: Temperature 97.7 degrees, pulse 54 per minute, respiratory rate 22 per minute, blood pressure 132/53, pulse oximetry 99% on 4 L of oxygen via nasal cannula. General: Patient is alert and oriented x3. She does not appear to be in any acute distress. Cardiovascular System: First and second heart sounds are audible without any murmurs or gallops. Respiratory System: Bilateral lung air entry is moderately decreased with a few wheezes present on auscultation. Gastrointestinal System: Abdomen is soft, nondistended. Normal bowel sounds are present. DIAGNOSTIC DATA: CBC shows a hemoglobin of 6.50, hemoglobin 8.7, hematocrit 28.1, and platelet count of 215,000. In comparison, her hemoglobin and hematocrit were 9.1 and 29.5 yesterday. Chemistry shows creatinine of 4.3. Rest of the chemistry is nondiagnostic. In comparison, her BUN and creatinine were 40 and 6.3 respectively yesterday before hemodialysis. Arterial blood gases done this morning showed pH of 7.47, pCO2 of 45, and pO2 128 on 40% of oxygen. IMPRESSION: 1. Dyspnea with volume overload and congestive heart failure causing acute hypoxemic respiratory failure that has significantly improved after she had hemodialysis yesterday. Patient is known to have end-stage renal disease and also uncontrolled type 2 diabetes mellitus, coronary artery disease, hypertension, dyslipidemia, and hypothyroidism. 2. Hyperkalemia and hyponatremia have resolved. PLAN: The patient had hemodialysis yesterday that improved her creatinine levels as well as hyponatremia and hyperkalemia. Her congestive heart failure has also significantly improved, although she still has volume overload and therefore is planned to have another hemodialysis session today. She presented to the ER with uncontrolled diabetes with hyperglycemia that has also improved, although she did have an episode of hypoglycemia last night that required dextrose IV. Overall, her condition is getting better and we are going to continue with the current insulin regimen for her glucose control. We will also continue with the rest of supportive care. Further recommendations will be as per hospital course. cc: Anatoly Grajeda MD
[2019-10-30] MEDS: NEURONTIN PO SCH ×3 (08:26→18:04)
[2019-10-30] MEDS: APRESOLINE PO SCH ×2 (08:26→21:21)
[2019-10-30] MEDS: ASPIRIN PO SCH (08:26)
[2019-10-30] MEDS: VICON-C PO SCH (08:26)
[2019-10-30] MEDS: NORVASC PO SCH (08:26)
[2019-10-30] MEDS: CELEXA PO SCH (08:26)
[2019-10-30] MEDS: CORDARONE PO SCH (08:26)
[2019-10-30] MEDS: PLAVIX PO SCH (08:26)
[2019-10-30] MEDS: VITAMIN D PO SCH (08:26)
[2019-10-30] MEDS: PEPCID PO SCH ×2 (08:27→21:22)
[2019-10-30] MEDS: PHOSLO PO SCH ×3 (08:27→18:05)
[2019-10-30] MEDS: LANTUS INSULIN SUBQ SCH ×2 (08:27→21:22)
--- NOTE | 2019-10-30 09:35 | NEPHROLOGY PROGRESS NOTE ---
DATE: 10/30/2019 TIME SEEN: 06:40. SUBJECTIVE: The patient is noted to have increased work of breathing. She stated she was on BiPAP during the night. She is currently on nasal cannula and denies any increase of shortness of breath at the moment. Also she says that her blood sugar dropped into the 20s around 2 a.m. She did not eat her dinner. Still on O2 but off BIPAP. Still some SOB. OBJECTIVE: Vital signs: Temperature 97.4 degrees, pulse 65, respirations 22, blood pressure 164/53, O2 saturation 93% on 4 L nasal cannula. General: Chronically ill- appearing white female, lying in bed, in no acute distress. HEENT: Normocephalic, atraumatic. Conjunctivae pale. Pupils equal and reactive. Skin: Warm and dry. Bronze in color. Neck: Supple, 8 cm JVD with hepatic jugular reflex. Cardiovascular: S1, S2. Regular rate and rhythm. Systolic murmur noted. No gallop. Respiratory: Lungs clear to auscultation anteriorly with increased work of breathing noted. Abdomen: Soft, obese, nontender, nondistended. Active bowel sounds. Genitourinary: None inspected. Extremities: No clubbing, cyanosis, or edema noted. Neurological: Alert and oriented to person, place, and time. LABORATORY DATA: WBC 6.50, hemoglobin 8.7, hematocrit 28.1, platelet count 215,000, sodium 138, potassium 4.4, chloride 96, carbon dioxide 30, BUN 19, creatinine 4.3. Intake 480, output 2993 per dialysis assist. IMPRESSION: 1. Chronic kidney disease stage 5D. Her creatinine and BUN have improved with hemodialysis. She achieved 3 L ultrafiltration yesterday. Because of her clinical appearance, we will go ahead and dialyze her again today with a 3K bath and attempt a 4 L ultrafiltration over 3.5 hours. 2. Blood pressure, variable. We will monitor for now. Home medications restarted. 3. Fluid volume. Slightly expanded. She will have hemodialysis again today for management. 4. Anemia. Low but stable. Does not meet transfusion criteria. 5. Electrolytes and acid-base balance. These are acceptable. 6. Nutrition. Patient disliked dinner choice last night, so therefore she did not eat, probably contributing to her hypoglycemic event. Encourage to eat. 7. Hypoglycemia. The patient was given her scheduled Lantus and Humalog after she had not eaten her dinner tray. We will observe. MEDICATION REVIEW: Home medications restarted. This is Felicity Lucas, nurse-practitioner, dictating progress note for Dr. Sonny Ashby. I would like to thank you for allowing us to follow with this patient. Dictated by LACEY Courtney for Sonny Ashby MD Face to face encounter, data reviewed, discussed with Yaneli Lucas. I agree with the above assessment and plan of care. cc: MD Anatoly Cam MD [facility]
[2019-10-30] MEDS: LIPITOR PO SCH (21:21)
[2019-10-30] MEDS: SYNTHROID PO SCH (21:22)
[2019-10-31 04:58] LABS: ALLEN TEST YES; BE 6.9 mmoll (-3.0-3.0); BLOOD TYPE ARTERIAL; HCO3-(ACT) 30.3 mmoll (20.0-26.0); METHB 1.2 % (0.0-1.5); O2(CT) 12.7 mL/dL (15.0-23.0); O2HB 96.2 % (95.0-99.0); PCO2(98.6) 43 mmHg (35-45); PO2(98.6) 177 mmHg (60-100); SAMPLE BLOOD; SAO2 98.5 % (95.0-100.0); THB 9.1 g/dL (11.5-17.4); pH(98.6) 7.47 (7.35-7.45)
[2019-10-31 04:59] LABS: MODALITY BI PAP
[2019-10-31 05:29] LABS: BASO# 0.05 X1000 (0.0-0.2); BASO% 0.8 % (0.0-0.8); EOS% 3.4 % (0.0-10.0); HEMATOCRIT 29.9 % (37.0-47.0); LYMPH# 1.39 X1000 (1.2-3.4); LYMPH% 23.4 % (20.5-51.1); MCH 29.5 PG (27-31); MCHC 30.1 g/dL (33-37); MONO# 0.45 X1000 (0.11-0.59); MONO% 7.6 % (1.7-9.3); MPV 10.4 FL (7.4-10.4); NEUT# 3.85 X1000 (1.4-6.5); NEUT% 64.8 % (42.2-75.2); PLT 220 X1000 (130-400); RBC 3.05 XMIL (4.2-5.4); RDW 15.8 % (11.5-14.5); WBC 5.94 X1000 (4.8-10.8)
[2019-10-31 06:00] LABS: CALCIUM 9.1 mg/dL (8.8-10.2); CREATININE 3.5 mg/dL (0.5-0.9); POTASSIUM 4.7 mmol/L (3.5-5.1)
[2019-10-31] MEDS ORDERED: NS 2,000 ML MISC PRN (06:14)
[2019-10-31] MEDS ORDERED: HEPARIN IV PRN (06:14)
[2019-10-31] MEDS ORDERED: TIGHT: 0.2 ML/HR FOR DIALYSIS MISC PRN (06:14)
[2019-10-31] MEDS: HUMALOG SUBQ SCH ×2 (06:40→12:39)
--- NOTE | 2019-10-31 07:44 | Diag Imaging Result Doc PS360 ---
EXAM: CHEST-PORTABLE 10/31/2019 HISTORY: reassess pulmonary edema TECHNIQUE: AP portable at 0555 COMMENT: The interstitial and alveolar pulmonary edema which was present on 10/29/2019 has improved. There is also less blunting of the right costophrenic angle. IMPRESSION: Improved pulmonary edema and right pleural effusion. Electronically signed by Sami Osorio 10/31/2019 7:42 AM
--- NOTE | 2019-10-31 08:12 | DISCHARGE SUMMARY ---
ADMISSION DATE: 10/29/2019 DISCHARGE DATE: 10/31/2019 DISCHARGE DIAGNOSES: 1. Pulmonary edema secondary to fluid overload causing acute hypoxemic respiratory failure. 2. End-stage renal disease. 3. Uncontrolled type 2 diabetes mellitus. 4. Hyperkalemia. 5. Hyponatremia. 6. Coronary artery disease. 7. Hypertension. 8. Dyslipidemia. 9. Hypothyroidism. HOSPITAL COURSE: Ms. Myers is a 64-year-old female who came into the emergency room with shortness of breath along with hypoxemia. She was noted to have pulmonary edema and, therefore, was admitted to the hospital for further care. She was also noted to have significant hyperkalemia with a potassium level of 6.0 and hyponatremia with a sodium level of 129. Furthermore, her glucose levels were significantly elevated at 790. She underwent hemodialysis twice for 2 consecutive days and that improved her pulmonary edema as well as her electrolytes. Her glucose levels were controlled with lispro insulin subcutaneously as per sliding scale. Her dyspnea and hypoxemia have also improved after fluid overload was corrected. She did have metabolic acidosis on presentation that was deemed to be secondary to renal failure and that has been corrected after she underwent hemodialysis. Since her overall condition has improved, she is going to be discharged home today. DISCHARGE MEDICATIONS: 1. Amiodarone 100 mg orally once daily. 2. Amlodipine 10 mg orally once daily. 3. Aspirin 81 mg orally once daily. 4. Clopidogrel 75 mg orally once daily. 5. Atorvastatin 10 mg orally once daily at bedtime. 6. Calcium acetate 667 mg 2 capsules with each meal 3 times a day as directed. 7. Citalopram 40 mg orally once daily. 8. Famotidine 40 mg orally twice daily. 9. Gabapentin 100 mg in the morning and 200 mg at bedtime. 10. Hydralazine 75 mg twice daily. 11. Lantus 40 units subcutaneously once every 24 hours. 12. Lispro insulin 5 units subcutaneously 3 times a day with meals as directed. 13. Levothyroxine 175 mcg orally once daily. FOLLOWUP: She will follow up with me at the office in 1 week and follow up with Dr. Ashby in 1 to 2 weeks. She will continue with her hemodialysis as per Dr. Ashby. CONDITION: Stable. DISPOSITION: Home. cc: Anatoly Grajeda MD
--- NOTE | 2019-10-31 09:24 | NEPHROLOGY PROGRESS NOTE ---
DATE: 10/31/2019 Time seen at 0750. SUBJECTIVE: The patient lying in bed, awake, watching television. She states that she feels better than she has in several days. She voices using a BiPAP at night at home and has continued this during her hospital stay. OBJECTIVE: Vital signs: Temperature 98.3 degrees, pulse 52, respirations 19, blood pressure 144/51, O2 saturation 99% on 4 L nasal cannula. General: Chronically ill- appearing white female lying in bed, in no acute distress. HEENT: Normocephalic, atraumatic. Conjunctiva pale. Pupils equal and reactive. Skin: Warm and dry. Neck: Is supple. Positive JVD observed. Cardiovascular: S1, S2. Regular rate and rhythm. Soft systolic murmur noted. Respiratory: Scattered rhonchi and wheezing anteriorly, but noted to be improved. No increased work of breathing noted. Abdomen: Is soft, obese, nontender, nondistended. Active bowel sounds. : Not inspected. Extremities: No clubbing, cyanosis, or edema noted. Neurological: Alert and oriented to person, place, and time. LABS: WBC 5.94, hemoglobin 9, hematocrit 29.9, platelet count 220,000. Sodium 135, potassium 4.7, chloride 95, carbon dioxide 28, BUN 20, creatinine 3.5. Intake 900, output 4366. IMPRESSION: 1. Chronic kidney disease stage 5D. Patient had an added on treatment of hemodialysis yesterday, not on her regular scheduled day to help with fluid volume management. She had an ultrafiltration of almost 4 L without complications. She voices her shortness of breath improving and her fluid volume exam has improved as well. We will go ahead and keep her on her regular scheduled treatment for today with an ultrafiltration attempt at 3 L with a 2K bath over 3.5 hours. 2. Blood pressure, stable. 3. Anemia, stable. 4. Electrolytes and acid-base balance. These are acceptable. 5. Nutrition is adequate. 6. Medication review. Amiodarone and Norvasc added from home medications and started this morning. 7. Disposition. Patient voices her primary telling her that she could discharge after dialysis today. We will follow up with her in the outpatient setting. I would like to thank you for allowing us to follow with this patient. Dictated by LACEY Courtney for Sonny Ashby MD Face to face encounter, data reviewed, discussed with Yaneli Lucas on 10/31/19. I agree with the above assessment and plan of care. cc: MD Anatoly Cam MD [facility]
[2019-10-31] MEDS: PLAVIX PO SCH (12:31)
[2019-10-31] MEDS: PEPCID PO SCH (12:31)
[2019-10-31] MEDS: VITAMIN D PO SCH (12:31)
[2019-10-31] MEDS: PHOSLO PO SCH ×3 (12:31→12:36)
[2019-10-31] MEDS: NEURONTIN PO SCH ×3 (12:31→12:35)
[2019-10-31] MEDS: NORVASC PO SCH (12:31)
[2019-10-31] MEDS: CELEXA PO SCH (12:31)
[2019-10-31] MEDS: ASPIRIN PO SCH (12:32)
[2019-10-31] MEDS: VICON-C PO SCH (12:32)
[2019-10-31] MEDS: CORDARONE PO SCH (12:32)
[2019-10-31] MEDS: APRESOLINE PO SCH (12:32)
[2019-10-31] MEDS: LANTUS INSULIN SUBQ SCH (12:33)
[2019-10-31 12:44] VITALS: BP 144/53
== END 2019-10-31 18:15 | disposition home or self-care (01) | DRG 291 ==
LOC: ED 06:52 → EDIPHOLD 10:49 → 1N 19:42
PROVIDERS: ADMIT Internal Medicine; ATTEND Internal Medicine